=== PATIENT | male | born 1970 | race Caucasian/White ===

== ENCOUNTER → 2019-01-09 | Outpatient (CLI) | payer BC ==
--- NOTE | 2019-01-09 10:06 | US ---
EXAMINATION TYPE: US abdomen complete DATE OF EXAM: 01/09/2019 COMPARISON: NONE CLINICAL HISTORY: M54.5 low back Pain, and rt lower back pain R10.31. Patient states unable to digest meat. EXAM MEASUREMENTS: Liver Length: 12.9 cm Gallbladder Wall: 0.3 cm CBD: 0.5 cm Spleen: 11.6 cm Right Kidney: 10.7 x 5.9x 5.6 cm Left Kidney: 11.4 x 5.6 x 5.2 cm Technically difficult study due to midline bowel gas. Pancreas: visualized portions wnl Liver: wnl Gallbladder: No stones seen Evidence for sonographic Martin's sign: No CBD: wnl Spleen: wnl Right Kidney: No hydronephrosis or masses seen Left Kidney: No hydronephrosis or masses seen Upper IVC: wnl Abd Aorta: limited visualization proximally due to bowel gas. The visualized liver is heterogeneous. The intrahepatic portion of the IVC and visualized abdominal aorta are within normal limits. There is no evidence of cholelithiasis. Common bile duct is unremar kable. The visualized portions of the pancreas are homogenous. The spleen is unremarkable. Kidneys are symmetric and free of hydronephrosis. No renal lesions are seen. IMPRESSION: Suboptimal study. Probable diffuse fatty infiltration of liver. No acute findings are kallie dent.
== END | disposition home or self-care (01) ==
LOC: RADUSWWP 09:10
PROVIDERS: ATTEND Family Medicine
DX: R10.11 Right upper quadrant pain (principal); M54.5 Low back pain
CPT/HCPCS: 76700

== ENCOUNTER → 2019-12-17 | Outpatient (CLI) | payer BC ==
[2019-12-18 00:23] LABS: African American GFR (CKD) 82.4 (60.0-200.0); Anion Gap 9.8 mmol/L (4.00-12.00); BUN/Creat Ratio 14.17 Ratio (12.00-20.00); Carbon Dioxide 20.2 mmol/L (21.6-31.8); Non-African American GFR(CKD) 71.1 (60.0-200.0)
== END | disposition home or self-care (01) ==
LOC: LABWHC1 09:51
PROVIDERS: ATTEND Internal Medicine
DX: I10 Essential (primary) hypertension (principal); I71.9 Aortic aneurysm of unspecified site, without rupture; F17.200 Nicotine dependence, unspecified, uncomplicated
CPT/HCPCS: 36415; 80048

== ENCOUNTER → 2024-01-08 | Outpatient (CLI) | payer BC ==
--- NOTE | 2024-01-08 11:01 | US ---
EXAMINATION TYPE: US kidneys/renal and bladder DATE OF EXAM: 01/08/2024 COMPARISON: Abdominal ultrasound 01/09/19 CLINICAL INDICATION: Male, 53 years old with history of Z13.220 SCR FOR LIPO DISORDER E78.5; hyperlip idemia TECHNIQUE: Grayscale and color Doppler imaging of the bilateral kidneys and urinary bladder: FINDINGS: EXAM MEASUREMENTS: Right Kidney: 10.2 x 5.3 x 5.7 cm Left Kidney: 11.2 x 4.9 x 5.8 cm Right Kidney: No hydronephrosis or masses seen Left Kidney: No hydronephrosis or masses seen Bladder: wnl Bilateral Jets seen: yes There is no evidence for hydronephrosis at this point in time. Corticomedullary differentiation is m aintained. No nephrolithiasis is seen. No masses are identified. The urinary bladder is anechoic. IMPRESSION: No hydronephrosis or nephrolithiasis. [facility], , 01/08/2024 10:59 AM
== END | disposition home or self-care (01) ==
LOC: RADUSWWP 10:31
PROVIDERS: ATTEND Family Medicine
CPT/HCPCS: 76770

== ENCOUNTER 2024-02-03 12:36 | Inpatient (IN) | payer BC ==
--- NOTE | 2024-02-03 12:51 | ED ---
General Adult HPI - General Chief complaint: Chest Pain Stated complaint: Chest Pain Time Seen by Provider: 02/03/24 12:41 Source: patient, RN notes reviewed Mode of arrival: ambulatory Limitations: no limitations - History of Present Illness Initial comments: Patient is a 54-year-old male presenting to the emergency department with concerns for chest discomfort. Onset of symptoms was this morning. Symptoms have been present since that time. Discomfort is 7/10. Discomfort feels like pressure with some radiation to the left arm. No history of cardiac disease however patient does have history of aortic aneurysm. Discomfort is somewhat worse with standing up. No associated dyspnea, nausea, or diaphoresis. Patient did have somewhat similar symptoms over a year ago with unremarkable workup - Related Data Home Medications Medication Instructions Recorded Confirmed Acetaminophen Tab [Tylenol] 650 mg PO Q6H PRN 02/03/24 02/03/24 Rosuvastatin Calcium [Crestor] 5 mg PO HS 02/03/24 02/03/24 lisinopriL [Zestril] 10 mg PO DAILY@1200 02/03/24 02/03/24 Allergies Allergy/AdvReac Type Severity Reaction Status Date / Time No Known Allergies Allergy Verified 02/03/24 12:56 Review of Systems ROS Statement: Those systems with pertinent positive or pertinent negative responses have been documented in the HPI. ROS Other: All systems not noted in ROS Statement are negative. Constitutional: Denies: fever Eyes: Denies: eye pain ENT: Denies: ear pain Respiratory: Denies: dyspnea Cardiovascular: Reports: as per HPI, chest pain Endocrine: Denies: fatigue Gastrointestinal: Denies: abdominal pain Past Medical History Additional Past Medical History / Comment(s): migraine History of Any Multi-Drug Resistant Organisms: None Reported Past Surgical History: No Surgical Hx Reported Past Psychological History: No Psychological Hx Reported Smoking Status: Former smoker Past Alcohol Use History: Rare Past Drug Use History: Marijuana General Exam Limitations: no limitations General appearance: alert, in no apparent distress Head exam: Present: normocephalic Eye exam: Present: normal appearance Neck exam: Present: normal inspection Respiratory exam: Present: normal lung sounds bilaterally Cardiovascular Exam: Present: regular rate, normal rhythm, normal heart sounds Expanded Peripheral pulses: 2+: Radial (R), Radial (L), Dorsalis Pedis (R), Dorsalis Pedis (L) GI/Abdominal exam: Present: soft. Absent: tenderness Extremities exam: Present: normal inspection. Absent: pedal edema, calf tenderness Neurological exam: Present: alert Psychiatric exam: Present: normal affect, normal mood Skin exam: Present: normal color Course Vital Signs 02/03/24 02/03/24 02/03/24 12:37 12:51 12:56 Temperature 97.8 F Pulse Rate 64 66 65 Respiratory 16 16 16 Rate Blood Pressure 124/85 140/105 136/98 O2 Sat by Pulse 98 98 Oximetry 02/03/24 13:01 Temperature Pulse Rate 73 Respiratory 12 Rate Blood Pressure 111/97 O2 Sat by Pulse 97 Oximetry - Reevaluation(s) Reevaluation #1: 02/03/24 12:52 STEMI alert has been called. Cardiology has been paged and sound physician group has been paged. Patient has been updated EKG Findings - EKG Results: EKG: interpreted by ERMD (Q wave in 3. Inferior ST elevation. Borderline lateral ST elevation.), sinus rhythm, normal axis Medical Decision Making - Medical Decision Making EKG #2 interpreted by myself shows sinus rhythm with a rate of 67. Normal axis. Q wave in lead III. Inferior ST elevation with borderline lateral ST elevation Was pt. sent in by a medical professional or institution (, PA, IMPROVEMENT LEADER, urgent care, hospital, or assisted...) When possible be specific @ -No Did you speak to anyone other than the patient for history (EMS, parent, family, police, friend...)? What history was obtained from this source @ -No Did you review nursing and triage notes (agree or disagree)? Why? @ -I reviewed and agree with nursing and triage notes Were old charts reviewed (outside hosp., previous admission, EMS record, old EKG, old radiological studies, urgent care reports/EKG's, assisted records)? Report findings @ -Previous ultrasound reports reviewed without evidence of reported aortic changes Differential Diagnosis (chest pain, altered mental status, abdominal pain women, abdominal pain men, vaginal bleeding, weakness, fever, dyspnea, syncope, headache, dizziness, GI bleed, back pain, seizure, CVA, palpatations, mental health, musculoskeletal)? @ -Differential Chest Pain: Stable Angina, Unstable Angina, STEMI, NSTEMI Aortic Dissection, Pneumothorax, Musculoskeletal, Esophageal Spasm GERD, Cholecystitis, Pancreatitis, Zoster, this is not meant to be an all-inclusive list. EKG interpreted by me (3pts min.). @ -As above X-rays interpreted by me (1pt min.). @ -X-ray shows CT interpreted by me (1pt min.). @ -None done U/S interpreted by me (1pt. min.). @ -None done What testing was considered but not performed or refused? (CT, X-rays, U/S, labs)? Why? @ -None What meds were considered but not given or refused? Why? @ -None Did you discuss the management of the patient with other professionals (professionals i.e. DrHuong, PA, IMPROVEMENT LEADER, lab, RT, psych nurse, licensed social worker, core filer, teacher, chief environmental commitment officer, behavioral health case manager)? Give summary @ -Cardiology Dr. Sue and was updated and concerning for aneurysms being watched in the ascending aorta and abdominal. He is okay with patient receiving heparin and was taking patient to the [facility] at this time. Sound physician, Dr. Howard who will admit yanni parry Was smoking cessation discussed for >3mins.? @ -No Was critical care preformed (if so, how long)? @ -Care time: 18 minutes Were there social determinants of health that impacted care today? How? (Homelessness, low income, unemployed, alcoholism, drug addiction, transportation, low edu. Level, literacy, decrease access to med. care, fpc, rehab)? @ -No Was there de-escalation of care discussed even if they declined (Discuss DNR or withdrawal of care, Hospice)? DNR status @ -No What co-morbidities impacted this encounter? (DM, HTN, Smoking, COPD, CAD, Cancer, CVA, ARF, Chemo, Hep., AIDS, mental health diagnosis, sleep apnea, morbid obesity)? @ -Reported history of aortic aneurysm Was patient admitted / discharged? Hospital course, mention meds given and route, prescriptions, significant lab abnormalities, going to OR and other pertinent info. @ -Presents with chest discomfort, 7/10 with pressure and some radiation. EKG concerning for STEMI. STEMI alert called. Patient to go to [facility]. Admission orders written. Undiagnosed new problem with uncertain prognosis? @ -No Drug Therapy requiring intensive monitoring for toxicity (Heparin, Nitro, Insulin, Cardizem)? @ -No Were any procedures done? @ -No Diagnosis/symptom? @ -stemi Acute, or Chronic, or Acute on Chronic? @ -Acute Uncomplicated (without systemic symptoms) or Complicated (systemic symptoms)? @ -Complicated with questionable history of aortic aneurysm Side effects of treatment? @ -No Exacerbation, Progression, or Severe Exacerbation? @ -No Poses a threat to life or bodily function? How? (Chest pain, [place], [place], pneumonia, PE, COPD, DKA, ARF, appy, cholecystitis, CVA, Diverticulitis, Homicidal, Suicidal, threat to staff... and all critical care pts) @ -Threat to cardiac function and life Disposition Clinical Impression: ST elevation myocardial infarction (STEMI) Disposition: ADMITTED IP TO THIS HOSP Condition: Critical Is patient prescribed a controlled substance at d/c from ED?: No Referrals: Anita Parry III, MD [Primary Care Provider] - 1-2 days Time of Disposition: 13:08
[2024-02-03] MEDS: SODIUM CHLORIDE 0.9% 1,000 ML IV ONE (12:59)
[2024-02-03] MEDS: ASPIRIN 81 MG PO STA (13:00)
[2024-02-03] MEDS: NITROGLYCERIN SL TABS 0.4 MG TAB SUBLINGUAL STA ×3 (13:01→14:00)
[2024-02-03] MEDS: HEPARIN SODIUM 1,000 UN/ML (10ML VL) IVP STA ×2 (13:04)
[2024-02-03 13:10] LABS: Basophils # (A) 0.1 k/uL (0-0.2); Basophils % (A) 1 %; Eosinophils # (A) 0.6 k/uL (0-0.7); Eosinophils % (A) 7 %; HCT 48.2 % (39.0-53.0); HGB 15.5 gm/dL (13.0-17.5); Lymphocytes # (A) 1.6 k/uL (1.0-4.8); Lymphocytes % (A) 20 %; MCH 29.8 pg (25.0-35.0); MCHC 32.2 g/dL (31.0-37.0); MCV 92.6 fL (80.0-100.0); Mean Platelet Volume 7.3; Monocytes # (A) 0.6 k/uL (0-1.0); Monocytes % (A) 7 %; Neutrophils # (A) 5.1 k/uL (1.3-7.7); Neutrophils % (A) 64 %; Platelet Count 192 k/uL (150-450); RDW 13.2 % (11.5-15.5); WBC 7.9 k/uL (3.8-10.6)
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
[2024-02-03] MEDS: MIDAZOLAM 2 MG/2 ML VIAL IVP ONE (13:17)
[2024-02-03] MEDS: fentaNYL (PF) 50 MCG/ML 2 ML AMP IVP ONE (13:17)
[2024-02-03] MEDS: LIDOCAINE 1% INJ 10MG/ML (20 ML MDV) SQ ONE (13:18)
[2024-02-03] MEDS: VERAPAMIL SYRINGE (5 MG/10 ML) INTRAARTER ONE (13:19)
[2024-02-03 13:21] LABS: Partial Thromboplastin Time 25.6 sec (22.0-30.0); Prothrombin Time 10.8 sec (10.0-12.5)
--- NOTE | 2024-02-03 13:21 | XR ---
EXAMINATION TYPE: XR chest 1V portable DATE OF EXAM: 02/03/2024 CLINICAL HISTORY: Chest pain TECHNIQUE: Single frontal view of the chest is obtained. COMPARISON: None FINDINGS: There is no focal air space opacity, pleural effusion, or pneumothorax seen. The cardiac silhouette size is within normal limits. The osseous structures are intact. IMPRESSION: No acute process. [facility], , 02/03/2024 1:18 PM
[2024-02-03] MEDS: HEPARIN SODIUM 1,000 UN/ML (10ML VL) IVP ONE (13:26)
[2024-02-03 13:32] LABS: ALT 23 U/L (4-49); AST 22 U/L (17-59); African American GFR (CKD) 81 (>60 ml/min/1.73 sqM); Albumin 4.4 g/dL (3.5-5.0); Alkaline Phosphatase 45 U/L (38-126); Anion Gap 4 mmol/L; Blood Urea Nitrogen 14 mg/dL (9-20); Calcium 9.1 mg/dL (8.4-10.2); Carbon Dioxide 28 mmol/L (22-30); Chloride 108 mmol/L (98-107); Glucose 99 mg/dL (74-99); Magnesium 2.3 mg/dL (1.6-2.3); Non-African American GFR(CKD) 70 (>60 ml/min/1.73 sqM); Potassium 4.6 mmol/L (3.5-5.1); Sodium 140 mmol/L (137-145); Total Bilirubin 0.7 mg/dL (0.2-1.3); Total Protein 7.2 g/dL (6.3-8.2)
[2024-02-03] MEDS: CLOPIDOGREL 75 MG TAB PO ONE (13:39)
[2024-02-03] MEDS: IOPAMIDOL-300 100ML BTL INJ ONE (13:40)
[2024-02-03] MEDS ORDERED: RX INFO: IV CONTRAST WAS GIVEN 1 EACH MISC MISCELLANE PRN (13:42)
[2024-02-03] MEDS ORDERED: ZOLPIDEM 5 MG TAB PO PRN (13:42)
[2024-02-03] MEDS ORDERED: ATROPINE SULFATE 0.1 MG/ML 10ML SYRINGE IV PRN (13:42)
[2024-02-03] MEDS ORDERED: MAG HYDROX/AL HYDROX/SIMETH 30 ML CUP PO PRN (13:42)
[2024-02-03] MEDS: HEPARIN SOD,PORK IN 0.45% NACL 25,000 UNIT in 0.45% NACL 1 250ML.BAG IV SCH (14:12)
[2024-02-03] MEDS: SODIUM CHLORIDE 0.9% 1,000 ML in EMPTY BAG 1 BAG IV SCH (14:12)
[2024-02-03 14:24] LABS: Glucose,Whole Blood 90 mg/dL (70-110)
[2024-02-03 14:40] LABS: Basophils # (A) 0.1 k/uL (0-0.2); Basophils % (A) 1 %; Eosinophils # (A) 0.5 k/uL (0-0.7); Eosinophils % (A) 7 %; HCT 45.6 % (39.0-53.0); HGB 14.6 gm/dL (13.0-17.5); Lymphocytes # (A) 1.4 k/uL (1.0-4.8); Lymphocytes % (A) 20 %; MCH 29.9 pg (25.0-35.0); MCV 93.5 fL (80.0-100.0); Mean Platelet Volume 7.5; Monocytes # (A) 0.4 k/uL (0-1.0); Monocytes % (A) 6 %; Neutrophils # (A) 4.7 k/uL (1.3-7.7); Neutrophils % (A) 65 %; Platelet Count 168 k/uL (150-450); RBC 4.88 m/uL (4.30-5.90); RDW 13.2 % (11.5-15.5); WBC 7.3 k/uL (3.8-10.6)
--- NOTE | 2024-02-03 14:56 | P.CARDCATH ---
Description of Procedure: PROCEDURES PERFORMED: Left heart catheterization, bilateral coronary angiography, ultrasound guided arterial access INDICATION: STEMI CONSENT:I have discussed the risks, benefits and alternative therapies for the above-mentioned procedure and for both sedation/analgesia as well as necessary blood product administration, if indicated, as they pertain to this patient. The patient has indicated understanding and acceptance of the risks and procedures discussed. PROCEDURE: After the risks, benefits and alternatives of the above mentioned procedure explained in detail with the patient, informed consent was obtained. Patient was taken to the catheterization lab and prepped and draped in usual fashion. Ultrasound guidance was used to assess for arterial access. 1% lidocaine was used to anesthetize the right radial artery. A 6-Sol[place] Islander sheath was placed in the right radial artery using modified Seldinger technique and ultrasound guidance. Left coronary angiography was performed with a 5-[place] Islander JL 4.0 catheter and right coronary angiography was performed with a 6-[place] Islander AL1 catheter in various views. A 5-[place] Islander FR5 catheter was inserted into the left ventricle and pressure measurements were obtained. The right radial sheath was removed and a TR band was placed with hemostasis achieved. The patient tolerated the procedure well. Patient was transported back to the post catheterization holding area in stable condition. Conscious Sedation: Patient was monitored under the direct supervision of myself for conscious sedation using Versed and fentanyl for a total duration of 17 minutes HEMODYNAMICS: Ao: 115/71 LV: 108/8, LVEDP 18 SELECTIVE CORONARY ARTERIOGRAPHY: LEFT MAIN: The left main is a large caliber vessel which bifurcates into the LAD and circumflex. There is no significant stenosis. LEFT ANTERIOR DESCENDING CORONARY ARTERY: LAD is a large caliber vessel which wraps around to the apex. There is mild 20-30% stenosis. LEFT CIRCUMFLEX CORONARY ARTERY: Left circumflex is a moderate caliber vessel which is somnolent. It gives rise to the PDA. The mid to distal circumflex is aneurysmal approximately 6 mm in diameter with 90% stenosis irregular flow likely consistent with dissection RIGHT CORONARY ARTERY: The right coronary artery is a moderate to large caliber vessel which gives off a small PLV branch and is nondominant vessel. There is a mid RCA aneurysmal portion with 20-30% stenosis. FINAL IMPRESSION: 1. 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 Mildly elevated left sided filling pressures PLAN: 1. Aggressive risk factor modification per most recent ACC/AHA guidelines. 2. Patient's EKG has normalized and patient is chest pain-free. 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 If he has recurrent angina may consider re-cathing, or intravascular ultrasound or stenting of the circumflex.
[2024-02-03 15:24] LABS: INR 1.1 (<1.2); Prothrombin Time 11.7 sec (10.0-12.5)
[2024-02-03 15:54] LABS: Partial Thromboplastin Time 151.9 sec (22.0-30.0)
--- NOTE | 2024-02-03 16:34 | CA ---
Transthoracic Echo Report Name: Andrés Jensen Age: 54 Gender: M : 1970 Exam Date: 02/03/2024 15:10 Exam Location: [facility] Ht (in): 72 Wt (lb): 212 Ordering Physician: Amanda Alcocer Attending/Referring Phys: [id number], Carlyn Chuck Wagon Driver Flakita Narvaez RDCS Procedure CPT: Indications: LVF Cardiac Hx: Technical Quality: Good Contrast 1: Total Dose (mL): Contrast 2: Total Dose (mL): MEASUREMENTS (Male / Female) Normal Values 2D ECHO LV Diastolic Diameter PLAX 5.2 cm 4.2 - 5.9 / 3.9 - 5.3 cm LV Systolic Diameter PLAX 3.6 cm IVS Diastolic Thickness 0.9 cm 0.6 - 1.0 / 0.6 - 0.9 cm LVPW Diastolic Thickness 1.1 cm 0.6 - 1.0 / 0.6 - 0.9 cm LV Relative Wall Thickness 0.4 LVOT Diameter 2.6 cm LV Diastolic Volume MOD BP 155.8 cm??? 67 - 155 / 56 - 104 cm??? LV Systolic Volume MOD BP 75.6 cm??? 22 - 58 / 19 - 49 cm??? LV Ejection Fraction MOD BP 51.5 % >= 55 % LV Cardiac Index MOD BP 2194.4 cm???/min???m??? LV Diastolic Volume MOD 4C 150.8 cm??? LV Systolic Volume MOD 4C 75.5 cm??? LV Ejection Fraction MOD 4C 49.9 % LV Cardiac Index MOD 4C 2060.4 cm???/min???m??? LV Diastolic Length 4C 8.8 cm LV Systolic Length 4C 8.1 cm LV Diastolic Volume MOD 2C 153.9 cm??? LV Systolic Volume MOD 2C 69.1 cm??? LV Ejection Fraction MOD 2C 55.1 % LV Cardiac Index MOD 2C 2319.8 cm???/min???m??? LV Diastolic Length 2C 9.2 cm LV Systolic Length 2C 7.4 cm LA Volume 84.6 cm??? 18 - 58 / 22 - 52 cm??? LA Volume Index 38.0 cm???/m??? 16 - 28 cm???/m??? Ascending Aorta Diameter 4.1 cm DOPPLER AV Peak Velocity 100.1 cm/s AV Peak Gradient 4.0 mmHg AV Mean Velocity 69.6 cm/s AV Mean Gradient 2.2 mmHg AV Velocity Time Integral 22.4 cm LVOT Peak Velocity 78.4 cm/s LVOT Peak Gradient 2.5 mmHg LVOT Velocity Time Integral 17.4 cm LVOT Stroke Volume 89.9 cm??? LVOT Stroke Volume Index 41.2 ml/m??? LVOT Cardiac Index 2459.3 cm???/min???m??? AV Area Cont Eq vti 4.0 cm??? AV Area Cont Eq pk 4.0 cm??? MV Area PHT 4.5 cm??? Mitral E Point Velocity 59.4 cm/s Mitral A Point Velocity 35.7 cm/s Mitral E to A Ratio 1.7 MV Deceleration Time 169.4 ms TR Peak Velocity 210.9 cm/s TR Peak Gradient 17.8 mmHg Right Atrial Pressure 10.0 mmHg Pulmonary Artery Systolic Pressu 27.8 mmHg Right Ventricular Systolic Press 27.8 mmHg PV Peak Velocity 67.5 cm/s PV Peak Gradient 1.8 mmHg FINDINGS Left Ventricle Left ventricular ejection fraction is estimated at 50-55 %. Moderately increased left ventricular systolic volume. Mildly decreased left ventricular ejection fraction. Mid to basal inferior wall hypokinesia Right Ventricle Mild right ventricular dilatation with mildly reduced function. Right ventricular systolic pressure within normal limits. Right Atrium Mild right atrial dilatation. Left Atrium Mildly increased left atrial area. Mitral Valve Structurally normal mitral valve. No evidence for mitral valve prolapse. No mitral stenosis. Trace mitral regurgitation. Aortic Valve Trileaflet aortic valve. No aortic valve stenosis or regurgitation. Tricuspid Valve Structurally normal tricuspid valve. No tricuspid stenosis. Mild tricuspid regurgitation. Pulmonic Valve Pulmonic valve not well visualized. No pulmonic stenosis. Trace pulmonic regurgitation. Pericardium No pericardial effusion. Aorta Dilated aortic annulus measured at 4.8 cm. Mildly dilated ascending aorta. History of abdominal aortic aneurysm. CONCLUSIONS LVEF 50 to 55% Mid to basal inferior wall hypokinesia Mildly dilated RV with mildly reduced systolic function. Mild biatrial dilatation No significant valve dysfunction other than mild TR Dilated aortic root measured at 4.8 cm. Previewed by: Dr Gian Serrano (Electronically Signed) Final Date: 03 February 2024 16:33
--- NOTE | 2024-02-03 16:46 | P.HPIM ---
History of Present Illness H&P Date: 02/03/24 Patient is a 54-year-old male with hypertension, hyperlipidemia, abdominal aortic aneurysm, and ascending aortic aneurysm who came in for chest pressure. He reported that this morning when he woke up he experienced a chest pressure that with an intensity of 8 out of 10 that was constant and was radiating to both of his arms and he did not experience relief with rest. He reported that he was experiencing intermittent chest pressures of the same intensity throughout the years and he believes this is due to his aneurysms. Today the chest pressure did not go away which led him to seek care. He denied shortness of breath, calf tenderness, nausea, sweats, vomiting, lightheadedness, palpitations, changes in vision, facial asymmetry, weakness, tremors, or recent travel. In the ER, EKG showed sinus rhythm with a rate of [address] elevations and Q waves in lead III. Troponin less than 0.0 12. WBC 7.9 hemoglobin 15.5 platelet count 192 potassium 140 potassium 4.6 BUN 14 creatinine 1.18 calcium 9.1 magnesium 2.3. ER CXR: No acute process. The rest of the review of systems is negative. PHYSICAL EXAMINATION: GENERAL: The patient is alert and oriented x3, not in any acute distress. Well developed, well nourished. HEENT: Pupils are round and equally reacting to light. EOMI. No scleral icterus. No conjunctival pallor. Normocephalic, atraumatic. No pharyngeal erythema. No t hyromegaly. CARDIOVASCULAR: S1 and S2 present. No murmurs, rubs, or gallops. PULMONARY: Chest is clear to auscultation b/l, no wheezing or crackles. ABDOMEN: Soft, nontender, nondistended, normoactive bowel sounds. No palpable organomegaly MUSCULOSKELETAL: No joint swelling or deformity. EXTREMITIES: No cyanosis, clubbing, or pedal edema. NEUROLOGICAL: Gross neurological examination did not reveal any focal deficits. SKIN: No rashes. Assessment: 53-year-old male who came in for chest pressure. EKG showed ST elevations in inferior wall. 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 every 6 as needed for pain Continue Plavix 75 mg p.o. daily Continue Lipitor 40 mg p.o. daily Continue aspirin 81 p.o. daily Metoprolol tartrate 12.5 mg p.o. twice daily, decreased from home dose, hold for HR < 60 CBC, BMP, Mg in the morning Trend troponin to peak every 6 hours Consult pulmonary for intensive care management Cardiology following Chronic conditions #. Hypertension Continue lisinopril 10 mg p.o. daily #. Hyperlipidemia Continue rosuvastatin 5 mg daily F: Oral fluid intake E: None N: Heart healthy diet A: self ambulation DVT ppx: IV heparin GI ppx: Protonix 40 mg p.o. daily Dispo: Estimated length of stay greater than 2 midnights for evaluation of ST segment elevation [place] of the inferior wall. Ekaterina Burroughs MD PGY-1 IM Dictation was produced using [employer] dictation software. please excuse any grammatical, word or spelling errors. I saw and evaluated the patient during the downey and critical portions of this encounter, and discussed the case in detail with the resident author of this note, I agree with the Assessment and Plan, and my changes, if any, are highlighted in blue. Past Medical History Additional Past Medical History / Comment(s): migraine History of Any Multi-Drug Resistant Organisms: None Reported Past Surgical History: No Surgical Hx Reported Past Psychological History: No Psychological Hx Reported Smoking Status: Former smoker Past Alcohol Use History: Rare Past Drug Use History: Marijuana - Past Family History Father Additional Family Medical History / Comment(s): enlarged aorta, possibly an aortic aneurysm, is . Brother(s) Additional Family Medical History / Comment(s): marfan's syndrome Mother Family Medical History: Diabetes Mellitus Additional Family Medical History / Comment(s): from brain aneurysm. Medications and Allergies Home Medications Medication Instructions Recorded Confirmed Type Acetaminophen Tab [Tylenol] 650 mg PO Q6H PRN 02/03/24 02/03/24 History Rosuvastatin Calcium [Crestor] 5 mg PO HS 02/03/24 02/03/24 History lisinopriL [Zestril] 10 mg PO DAILY@1200 02/03/24 02/03/24 History Allergies Allergy/AdvReac Type Severity Reaction Status Date / Time No Known Allergies Allergy Verified 02/03/24 12:56 Physical Exam Osteopathic Statement: *. No significant issues noted on an osteopathic structural exam other than those noted in the History and Physical/Consult. Vitals: Vital Signs Temp Pulse Pulse Resp BP Pulse Ox 02/03/24 14:15 98.1 F 60 17 95/73 99 02/03/24 14:06 62 18 02/03/24 13:22 74 16 117/82 98 02/03/24 13:01 73 12 111/97 97 02/03/24 13:00 74 02/03/24 12:56 65 16 136/98 02/03/24 12:51 66 16 140/105 98 02/03/24 12:37 97.8 F 64 16 124/85 98 Intake and Output 02/03/24 02/03/24 02/03/24 06:59 14:59 22:59 Intake Total 700 18.286 Balance 700 18.286 Intake: IV 700 Sodium Chloride 0.9% 1, 100 000 ml In Empty Bag 1 bag @ 100 mls/hr IV .Q10H [facility] Rx#:[id number] Intake, IV Titration 18.286 Amount Heparin Sod,Pork in 0.45% 18.286 NaCl 25,000 unit In 0.45 % NaCl 1 250ml.bag @ 10. 399 UNITS/KG/HR 10 mls/hr IV .Q24H [facility] Rx#: [id number] Other: Weight 96.162 kg Results CBC & Chem 7: 02/03/24 14:12 02/03/24 12:59 Labs: Abnormal Lab Results - Last 24 Hours (Table) 02/03/24 02/03/24 Range/Units 12:59 14:12 APTT 151.9 H* (22.0-30.0) sec Chloride 108 H (98-107) mmol/L
[2024-02-03] MEDS: ACETAMINOPHEN TAB 325 MG TAB PO PRN (20:05)
[2024-02-03] MEDS: ATORVASTATIN 40 MG TAB PO SCH (20:05)
[2024-02-03] MEDS: METOPROLOL TARTRATE 12.5 MG TAB PO SCH (20:06)
[2024-02-03] MEDS ORDERED: ATORVASTATIN 10 MG TAB PO SCH (21:00)
[2024-02-04] MEDS: HEPARIN SODIUM 1,000 UN/ML (10ML VL) IV PRN (00:42)
[2024-02-04 02:51] LABS: Basophils # (A) 0.1 k/uL (0-0.2); Basophils % (A) 1 %; Eosinophils # (A) 0.5 k/uL (0-0.7); Eosinophils % (A) 6 %; HCT 42.8 % (39.0-53.0); Lymphocytes # (A) 1.9 k/uL (1.0-4.8); Lymphocytes % (A) 23 %; MCH 30.2 pg (25.0-35.0); MCHC 32.6 g/dL (31.0-37.0); MCV 92.7 fL (80.0-100.0); Mean Platelet Volume 8.2; Monocytes # (A) 0.5 k/uL (0-1.0); Monocytes % (A) 6 %; Neutrophils # (A) 5.1 k/uL (1.3-7.7); Neutrophils % (A) 62 %; Platelet Count 171 k/uL (150-450); RBC 4.62 m/uL (4.30-5.90); RDW 13.3 % (11.5-15.5); WBC 8.2 k/uL (3.8-10.6)
[2024-02-04 03:24] LABS: Prothrombin Time 11.3 sec (10.0-12.5)
[2024-02-04 03:28] LABS: Magnesium 2.2 mg/dL (1.6-2.3)
[2024-02-04 08:02] LABS: African American GFR (CKD) >90 (>60 ml/min/1.73 sqM); Anion Gap 3 mmol/L; Blood Urea Nitrogen 9 mg/dL (9-20); Calcium 8.1 mg/dL (8.4-10.2); Carbon Dioxide 27 mmol/L (22-30); Chloride 108 mmol/L (98-107); Glucose 81 mg/dL (74-99); Non-African American GFR(CKD) 86 (>60 ml/min/1.73 sqM); Potassium 4.2 mmol/L (3.5-5.1); Sodium 138 mmol/L (137-145)
[2024-02-04] MEDS: ASPIRIN 81 MG PO SCH (08:07)
[2024-02-04] MEDS: CLOPIDOGREL 75 MG TAB PO SCH (08:07)
[2024-02-04 08:34] LABS: Basophils # (A) 0.1 k/uL (0-0.2); Basophils % (A) 1 %; Eosinophils # (A) 0.5 k/uL (0-0.7); Eosinophils % (A) 6 %; HCT 45.1 % (39.0-53.0); HGB 14.8 gm/dL (13.0-17.5); Lymphocytes # (A) 1.9 k/uL (1.0-4.8); Lymphocytes % (A) 26 %; MCH 30.3 pg (25.0-35.0); MCHC 32.9 g/dL (31.0-37.0); MCV 92.1 fL (80.0-100.0); Mean Platelet Volume 7.6; Monocytes # (A) 0.4 k/uL (0-1.0); Monocytes % (A) 6 %; Neutrophils # (A) 4.3 k/uL (1.3-7.7); Neutrophils % (A) 60 %; Platelet Count 164 k/uL (150-450); RDW 13.1 % (11.5-15.5); WBC 7.2 k/uL (3.8-10.6)
[2024-02-04 08:56] LABS: Chol/HDL Ratio 5.04 Ratio; LDL Cholesterol,Calculated 143.9 mg/dL (0.0-131.0)
[2024-02-04] MEDS ORDERED: ASPIRIN 325 MG TAB PO SCH (09:00)
[2024-02-04 09:32] VITALS: BMI 29.0
--- NOTE | 2024-02-04 11:51 | P.CNPUL ---
History of Present Illness Consult date: 02/04/24 History of present illness: Andrés Jensen is a 54-year-old male patient with of hypertension, HLD, and aneurysm possibly ascending and/or abdominal aneurysm. He presented in ER yesterday and treated for STEMI. Patient was found to have ST elevation in the lateral leads. Patient was taken to the [facility] and is now s/p cardiac catheterization with findings of left circumflex coronary artery aneurysmal approximately 6 mm in diameter, and with 90% stenosis present with irregular flow consistent with dissection. No stent placed due to dissection. He is on room air, and saturating well. He is currently on IV heparin 10.399 units/kg/h. WBC 7.2, hemoglobin 14.8, sodium 138, potassium 4.2, bicarb 27, creatinine 1.00 are all WNL. Yesterdays chest x-ray with no abnormal cardiopulmonary process. He is overall doing well, denying chest pain, palpitations, shortness of breath, diaphoresis with no other complaints and is being monitored in the ICU. Review of Systems Constitutional: Reports as per HPI Past Medical History Past Medical History: Coronary Artery Disease (CAD), Chest Pain / Angina, Hypertension, Pneumonia, Skin Disorder Additional Past Medical History / Comment(s): migraine History of Any Multi-Drug Resistant Organisms: None Reported Past Surgical History: No Surgical Hx Reported Past Psychological History: No Psychological Hx Reported Smoking Status: Former smoker Past Alcohol Use History: Rare Past Drug Use History: Marijuana - Past Family History Father Additional Family Medical History / Comment(s): enlarged aorta, possibly an aortic aneurysm, is . Brother(s) Additional Family Medical History / Comment(s): marfan's syndrome Mother Family Medical History: Diabetes Mellitus Additional Family Medical History / Comment(s): from brain aneurysm. Medications and Allergies Home Medications Medication Instructions Recorded Confirmed Type Acetaminophen Tab [Tylenol] 650 mg PO Q6H PRN 02/03/24 02/03/24 History Rosuvastatin Calcium [Crestor] 5 mg PO HS 02/03/24 02/03/24 History lisinopriL [Zestril] 10 mg PO DAILY@1200 02/03/24 02/03/24 History Allergies Allergy/AdvReac Type Severity Reaction Status Date / Time No Known Allergies Allergy Verified 02/03/24 12:56 Physical Exam Vitals: Vital Signs Temp Pulse Pulse Resp BP Pulse Ox 02/04/24 08:00 98.2 F 76 18 109/74 94 L 02/04/24 07:30 72 15 116/100 95 02/04/24 07:00 79 21 102/76 95 02/04/24 06:30 64 14 100/72 95 02/04/24 06:00 62 12 100/71 95 02/04/24 05:30 58 L 12 95/69 95 02/04/24 05:00 64 14 94/70 96 02/04/24 04:30 61 12 92/70 96 02/04/24 04:00 97.7 F 62 16 104/79 96 02/04/24 03:30 67 13 111/82 96 02/04/24 03:00 62 15 117/87 96 02/04/24 02:30 68 18 114/87 95 02/04/24 02:00 66 18 113/84 95 02/04/24 01:30 66 20 97/68 96 02/04/24 01:00 64 13 101/62 96 02/04/24 00:30 79 17 112/70 96 02/04/24 00:00 98.4 F 64 15 108/83 95 02/03/24 23:30 65 15 102/72 96 02/03/24 23:00 64 13 107/77 95 02/03/24 22:30 62 12 109/85 96 02/03/24 22:00 61 15 102/71 97 02/03/24 21:30 63 18 106/79 95 02/03/24 21:00 78 24 116/91 96 02/03/24 20:30 68 15 119/85 96 02/03/24 20:00 98.1 F 67 15 122/87 97 02/03/24 19:30 70 17 115/81 95 02/03/24 19:00 71 17 132/32 97 02/03/24 18:30 73 25 H 117/85 97 02/03/24 18:00 77 17 123/88 97 02/03/24 17:30 83 17 113/95 98 02/03/24 17:00 71 16 125/97 98 02/03/24 16:30 65 32 H 128/89 99 02/03/24 16:00 98 F 58 L 19 128/97 99 02/03/24 15:30 62 13 116/87 99 02/03/24 15:00 60 22 113/80 98 02/03/24 14:30 63 13 95/73 100 02/03/24 14:15 98.1 F 60 17 95/73 99 02/03/24 14:06 62 18 02/03/24 13:22 74 16 117/82 98 02/03/24 13:01 73 12 111/97 97 02/03/24 13:00 74 02/03/24 12:56 65 16 136/98 02/03/24 12:51 66 16 140/105 98 02/03/24 12:37 97.8 F 64 16 124/85 98 Intake and Output 02/03/24 02/04/24 02/04/24 22:59 06:59 14:59 Intake Total 818.286 773.917 40 Output Total 1000 500 800 Balance -181.714 273.917 -760 Intake: IV 800 720 40 Sodium Chloride 0.9% 1, 800 720 40 000 ml In Empty Bag 1 bag @ 100 mls/hr IV .Q10H [facility] Rx#:[id number] Intake, IV Titration 18.286 53.917 Amount Heparin Sod,Pork in 0.45% 18.286 53.917 NaCl 25,000 unit In 0.45 % NaCl 1 250ml.bag @ 10. 399 UNITS/KG/HR 10 mls/hr IV .Q24H [facility] Rx#: [id number] Output: Urine 1000 500 800 Other: Voiding Method Toilet Toilet Toilet Weight 97 kg 97 kg GENERAL: Not in any acute distress. Well developed, well nourished. Room Air. HEENT: Pupils are round and equally reacting to light. EOMI. No scleral icterus. No conjunctival pallor. Normocephalic, atraumatic. CARDIOVASCULAR: S1 and S2 present. No murmurs, rubs, or gallops. PULMONARY: Chest is clear to auscultation, no wheezing or crackles. ABDOMEN: Soft, nontender, nondistended, normoactive bowel sounds. No palpable organomegaly. MUSCULOSKELETAL: No joint swelling or deformity. EXTREMITIES: No cyanosis, clubbing, or pedal edema. NEUROLOGICAL: Gross neurological examination did not reveal any focal deficits. PSYCH: The patient is alert and oriented x3 SKIN: No rashes. no petechiae. Results - Laboratory Findings CBC and BMP: 02/04/24 07:48 02/04/24 06:15 PT/INR, D-dimer PT 11.3 sec (10.0-12.5) 02/04/24 02:35 INR 1.0 (<1.2) 02/04/24 02:35 Abnormal lab findings: Abnormal Labs 02/03/24 02/03/24 02/03/24 12:59 14:12 15:57 APTT 151.9 H* Chloride 108 H Calcium Troponin I 1.420 H* Cholesterol LDL Cholesterol, Calc 02/03/24 02/03/24 02/03/24 19:13 23:22 23:22 APTT 36.3 H Chloride Calcium Troponin I 5.090 H* 3.710 H* Cholesterol LDL Cholesterol, Calc 02/04/24 02/04/24 02/04/24 02:35 02:35 06:15 APTT Chloride 108 H Calcium 8.1 L Troponin I 2.400 H* Cholesterol 208.00 H LDL Cholesterol, Calc 143.9 H 02/04/24 02/04/24 06:16 07:43 APTT 49.6 H Chloride Calcium Troponin I 1.470 H* Cholesterol LDL Cholesterol, Calc Assessment and Plan Assessment: STEMI with 90% LCA stenosis, secondary to SCAD status post catheterization Hypertension Hyperlipidemia Plan: Cardiac monitoring Continue IV heparin Nitroglycerin sublingual tab as needed for chest pain Continue Plavix 75 mg p.o. daily, Lipitor 40 mg p.o. daily and aspirin 81 p.o. daily Metoprolol tartrate 12.5 mg p.o. twice daily Continue lisinopril 10 mg p.o. daily Cardiology following Continue DVT and GI prophylaxis Continue heart healthy diet Hemodynamically stable, can be downgraded with telemetry today or tomorrow We will continue to follow make recommendations along the way.
[2024-02-04] MEDS: lisinopriL 10 MG TAB PO SCH (12:02)
--- NOTE | 2024-02-04 13:35 | P.PN ---
Subjective Progress Note Date: 02/04/24 Patient is a 54-year-old male with hypertension, hyperlipidemia, abdominal aortic aneurysm, and ascending aortic aneurysm who came in for chest pressure. He reported that this morning when he woke up he experienced a chest pressure that with an intensity of 8 out of 10 that was constant and was radiating to both of his arms and he did not experience relief with rest. He reported that he was experiencing intermittent chest pressures of the same intensity throughout the years and he believes this is due to his aneurysms. Today the chest pressure did not go away which led him to seek care. He denied shortness of breath, calf tenderness, nausea, sweats, vomiting, lightheadedness, palpitations, changes in vision, facial asymmetry, weakness, tremors, or recent travel. In the ER, EKG showed sinus rhythm with a rate of [address] elevations and Q waves in lead III. Troponin less than 0.0 12. WBC 7.9 hemoglobin 15.5 platelet count 192 potassium 140 potassium 4.6 BUN 14 creatinine 1.18 calcium 9.1 magnesium 2.3. ER CXR: No acute process. 02/04/2024 patient seen and examined at bedside. Patient is still in ICU. He did not experience any new symptoms or has any new complaints overnight. Vital signs were stable overnight. WBC 7.2 hemoglobin 14.8 platelet count 164,000 PTT 49.6 sodium 138 potassium 4.2 BUN 9 creatinine 1 glucose 81 troponin peaked at 1 18 11 p.m. at 3.7 triglycerides 114 cholesterol 208 LDL 143 VLDL 22 HDL 41 echocardiogram showed left ventricular ejection fraction 50 to 55% with mild basal inferior wall hypokinesia and mild biatrial dilatation. The rest of the review of systems is negative. GENERAL: The patient is alert and oriented x3, not in any acute distress. Well developed, well nourished. HEENT: Pupils are round and equally reacting to light. EOMI. No scleral icterus. No conjunctival pallor. Normocephalic, atraumatic. No pharyngeal erythema. No thyromegaly. CARDIOVASCULAR: S1 and S2 present. No murmurs, rubs, or gallops. PULMONARY: Bilateral wheezing heard in the middle and lower lobes, no wheezing or crackles. ABDOMEN: Soft, nontender, nondistended, normoactive bowel sounds. No palpable organomegaly MUSCULOSKELETAL: No joint swelling or deformity. EXTREMITIES: No cyanosis, clubbing, or pedal edema. NEUROLOGICAL: Gross neurological examination did not reveal any focal deficits. SKIN: No rashes. Assessment: 53-year-old male who came in for chest pressure. EKG showed ST elevations in inferior wall. 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 Cardiac monitoring Continue IV heparin Nitroglycerin sublingual tab as needed for chest pain Tylenol 650 mg p.o. every 6 as needed for pain Continue Plavix 75 mg p.o. daily Continue Lipitor 40 mg p.o. daily Continue aspirin 81 p.o. daily Metoprolol tartrate 12.5 mg p.o. twice daily, hold for HR < 60 CBC, BMP, Mg in the morning Consult pulmonary for intensive care management Cardiology following Chronic conditions #. Hypertension Continue lisinopril 10 mg p.o. daily #. Hyperlipidemia Continue rosuvastatin 5 mg daily F: Oral fluid intake E: None N: Heart healthy diet A: self ambulation DVT ppx: IV heparin GI ppx: Protonix 40 mg p.o. daily Dispo: Estimated length of stay greater than 2 midnights for evaluation of ST segment elevation [place] of the inferior wall. Ekaterina Burroughs MD PGY-1 IM Dictation was produced using [employer] dictation software. please excuse any grammatical, word or spelling errors. I saw and evaluated the patient during the downey and critical portions of this encounter, and discussed the case in detail with the resident author of this note, I agree with the Assessment and Plan, and my changes, if any, are highlighted in blue. Objective - Vital Signs Vital signs: Vital Signs Temp 97.7 F 02/04/24 04:00 Pulse 79 02/04/24 07:00 Resp 21 02/04/24 07:00 BP 102/76 02/04/24 07:00 Pulse Ox 95 02/04/24 07:00 FiO2 Intake & Output 02/03/24 02/04/24 02/04/24 18:59 06:59 18:59 Intake Total 2096.353 1752.917 20 Output Total 700 800 Balance 418.286 373.917 20 Weight 96.162 kg 97 kg Intake: IV 1100 1120 20 Sodium Chloride 0.9% 1, 500 1120 20 000 ml In Empty Bag 1 bag @ 100 mls/hr IV .Q10H [facility] Rx#:[id number] Intake, IV Titration 18.286 53.917 Amount Heparin Sod,Pork in 0.45% 18.286 53.917 NaCl 25,000 unit In 0.45 % NaCl 1 250ml.bag @ 10. 399 UNITS/KG/HR 10 mls/hr IV .Q24H [facility] Rx#: [id number] Output: Urine 700 800 Other: Voiding Method Toilet Toilet - Labs CBC & Chem 7: 02/04/24 07:48 02/04/24 06:15 Labs: Abnormal Lab Results - Last 24 Hours (Table) 02/03/24 02/03/24 02/03/24 Range/Units 12:59 14:12 15:57 APTT 151.9 H* (22.0-30.0) sec Chloride 108 H (98-107) mmol/L Troponin I 1.420 H* (0.000-0.034) ng/mL 02/03/24 02/03/24 02/03/24 Range/Units 19:13 23:22 23:22 APTT 36.3 H (22.0-30.0) sec Chloride (98-107) mmol/L Troponin I 5.090 H* 3.710 H* (0.000-0.034) ng/mL 02/04/24 02/04/24 Range/Units 02:35 06:16 APTT 49.6 H (22.0-30.0) sec Chloride (98-107) mmol/L Troponin I 2.400 H* (0.000-0.034) ng/mL
[2024-02-04] MEDS: NITROGLYCERIN SL TABS 0.4 MG TAB SUBLINGUAL PRN (15:05)
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
[2024-02-05 05:34] LABS: HCT 42.5 % (39.0-53.0); HGB 14.3 gm/dL (13.0-17.5); MCH 30.7 pg (25.0-35.0); MCHC 33.7 g/dL (31.0-37.0); Mean Platelet Volume 8.2; Platelet Count 175 k/uL (150-450); RBC 4.67 m/uL (4.30-5.90); RDW 13.7 % (11.5-15.5); WBC 6.4 k/uL (3.8-10.6)
[2024-02-05 05:51] LABS: African American GFR (CKD) >90 (>60 ml/min/1.73 sqM); Anion Gap 2 mmol/L; Blood Urea Nitrogen 10 mg/dL (9-20); Calcium 8.7 mg/dL (8.4-10.2); Carbon Dioxide 24 mmol/L (22-30); Chloride 110 mmol/L (98-107); Glucose 83 mg/dL (74-99); Magnesium 2.2 mg/dL (1.6-2.3); Non-African American GFR(CKD) 85 (>60 ml/min/1.73 sqM); Sodium 136 mmol/L (137-145)
--- NOTE | 2024-02-05 10:06 | P.PN ---
Subjective Progress Note Date: 02/05/24 Andrés Jensen is a 54-year-old male patient with of hypertension, HLD, and aneurysm possibly ascending and/or abdominal aneurysm. He presented in ER yesterday and treated for STEMI. Patient was found to have ST elevation in the lateral leads. Patient was taken to the Controls Technician and is now s/p cardiac cat heterization with findings of left circumflex coronary artery aneurysmal approximately 6 mm in diameter, and with 90% stenosis present with irregular flow consistent with dissection. No stent placed due to dissection. He is on room air, and saturating well. He is currently on IV heparin 10.399 units/kg/h. WBC 7.2, hemoglobin 14.8, sodium 138, potassium 4.2, bicarb 27, creatinine 1.00 are all WNL. Yesterdays chest x-ray with no abnormal cardiopulmonary process. He is overall doing well, denying chest pain, palpitations, shortness of breath, diaphoresis with no other complaints and is being monitored in the ICU. Patient seen and examined on 02/05/2024. Currently, the patient is on room air. He is receiving IV heparin. He is getting saline at 20 cc an hour. He is currently on guideline directed medical therapy for NSTEMI. The patient does have a history of hypertension, and hyperlipidemia. Labs are reviewed. White count 6.4, hemoglobin 14.3, sodium 136, potassium 4.0, bicarb 24, BUN 10, creatinine 1.01. He reports absence of chest pain, palpitations dyspnea, diaphoresis. He is otherwise well, we will continue to follow patient. Objective - Vital Signs Vital signs: Vital Signs Temp 98.2 F 02/05/24 04:00 Pulse 59 L 02/05/24 07:00 Resp 15 02/05/24 07:00 BP 94/75 02/05/24 07:00 Pulse Ox 96 02/05/24 07:00 FiO2 Intake & Output 02/04/24 02/05/24 02/05/24 18:59 06:59 18:59 Intake Total 654.195 346.855 20 Output Total 2700 1200 Balance -2045.805 -853.145 20 Weight 97 kg 95.9 kg Intake: IV 240 240 20 .9 kvo 180 20 Sodium Chloride 0.9% 1, 240 60 000 ml In Empty Bag 1 bag @ 100 mls/hr IV .Q10H [facility] Rx#:[id number] Intake, IV Titration 164.195 106.855 Amount Heparin Sod,Pork in 0.45% 164.195 106.855 NaCl 25,000 unit In 0.45 % NaCl 1 250ml.bag @ 10. 399 UNITS/KG/HR 10 mls/hr IV .Q24H [facility] Rx#: [id number] Oral 250 Output: Urine 2700 1200 Other: Voiding Method Toilet Toilet - Exam GENERAL: No acute distress, Well developed, well nourished. On Room air. HEENT: Pupils are round and equally reacting to light. EOMI. No scleral icterus. No conjunctival pallor. Normocephalic, atraumatic. CARDIOVASCULAR: S1 and S2 present. No murmurs, rubs, or gallops. PULMONARY: Chest is clear to auscultation, no wheezing or crackles. ABDOMEN: Soft, nontender, nondistended, normoactive bowel sounds. No palpable organomegaly. MUSCULOSKELETAL: No joint swelling or deformity. EXTREMITIES: No cyanosis, clubbing, or pedal edema. PSYCH: The patient is alert and oriented x3 NEUROLOGICAL: Gross neurological examination did not reveal any focal deficits. SKIN: No rashes. no petechiae. - Labs CBC & Chem 7: 02/05/24 05:07 02/05/24 05:07 Labs: Abnormal Lab Results - Last 24 Hours (Table) 02/05/24 02/05/24 Range/Units 05:07 05:07 APTT 38.2 H (22.0-30.0) sec Sodium 136 L (137-145) mmol/L Chloride 110 H (98-107) mmol/L Assessment and Plan Assessment: NSTEMI with 90% LCA stenosis, secondary to SCAD status post catheterization Hypertension Hyperlipidemia Plan: Cardiac monitoring Continue IV heparin Nitroglycerin sublingual tab as needed for chest pain Continue Plavix 75 mg p.o. daily, Lipitor 40 mg p.o. daily and aspirin 81 p.o. daily Metoprolol tartrate 12.5 mg p.o. twice daily Continue lisinopril 10 mg p.o. daily Cardiology following Continue DVT and GI prophylaxis Continue heart healthy diet Hemodynamically stable, can be downgraded with telemetry today We will continue to follow make recommendations along the way.
--- NOTE | 2024-02-05 14:46 | P.PN ---
Subjective Progress Note Date: 02/05/24 Patient is a 54-year-old male with hypertension, hyperlipidemia, abdominal aortic aneurysm, and ascending aortic aneurysm who came in for chest pressure. He reported that this morning when he woke up he experienced a chest pressure that with an intensity of 8 out of 10 that was constant and was radiating to both of his arms and he did not experience relief with rest. He reported that he was experiencing intermittent chest pressures of the same intensity throughout the years and he believes this is due to his aneurysms. Today the chest pressure did not go away which led him to seek care. He denied shortness of breath, calf tenderness, nausea, sweats, vomiting, lightheadedness, palpitations, changes in vision, facial asymmetry, weakness, tremors, or recent travel. In the ER, EKG showed sinus rhythm with a rate of [address] elevations and Q waves in lead III. Troponin less than 0.0 12. WBC 7.9 hemoglobin 15.5 platelet count 192 potassium 140 potassium 4.6 BUN 14 creatinine 1.18 calcium 9.1 magnesium 2.3. ER CXR: No acute process. 02/04/2024 patient seen and examined at bedside. Patient is still in ICU. He did not experience any new symptoms or has any new complaints overnight. Vital signs were stable overnight. WBC 7.2 hemoglobin 14.8 platelet count 164,000 PTT 49.6 sodium 138 potassium 4.2 BUN 9 creatinine 1 glucose 81 troponin peaked at 1 /18 11 p.m. at 3.7 triglycerides 114 cholesterol 208 LDL 143 VLDL 22 HDL 41 echocardiogram showed left ventricular ejection fraction 50 to 55% with mild basal inferior wall hypokinesia and mild biatrial dilatation. 02/05/2024 patient seen and examined at bedside. Patient is still in ICU. Patient reported he had chest pressure yesterday afternoon but resolved with nitroglycerin. He did not experience any new symptoms or has any new complaints overnight. Vital signs were stable overnight. WBC 6.4 hemoglobin 14.3 platelet count 1 75,000 PTT 38.2 sodium 136 potassium 4.0 chloride 110 BUN 10 creatinine 1.01 calcium 8.7 magnesium 2.2 The rest of the review of systems is negative. GENERAL: The patient is alert and oriented x3, not in any acute distress. Well developed, well nourished. HEENT: Pupils are round and equally reacting to light. EOMI. No scleral icterus. No conjunctival pallor. Normocephalic, atraumatic. No pharyngeal erythema. No thyromegaly. CARDIOVASCULAR: S1 and S2 present. No murmurs, rubs, or gallops. PULMONARY: CTA, no wheezing or crackles. ABDOMEN: Soft, nontender, nondistended, normoactive bowel sounds. No palpable organomegaly MUSCULOSKELETAL: No joint swelling or deformity. EXTREMITIES: No cyanosis, clubbing, or pedal edema. NEUROLOGICAL: Gross neurological examination did not reveal any focal deficits. SKIN: No rashes. Assessment: 53-year-old male who came in for chest pressure. EKG showed ST elevations in inferior wall. 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 Cardiac monitoring Continue IV heparin Nitroglycerin sublingual tab as needed for chest pain Tylenol 650 mg p.o. every 6 as needed for pain Continue Plavix 75 mg p.o. daily Continue Lipitor 40 mg p.o. daily Continue aspirin 81 p.o. daily Metoprolol tartrate 12.5 mg p.o. twice daily, hold for HR < 60 CBC, BMP, Mg in the morning Consult pulmonary for intensive care management Cardiology following Chronic conditions #. Hypertension Continue lisinopril 10 mg p.o. daily #. Hyperlipidemia Continue rosuvastatin 5 mg daily F: Oral fluid intake E: None N: Heart healthy diet A: self ambulation DVT ppx: IV heparin GI ppx: Protonix 40 mg p.o. daily Dispo: Estimated length of stay greater than 2 midnights for evaluation of ST segment elevation AK of the inferior wall. Ekaterina Burroughs MD PGY-1 IM Dictation was produced using [employer] dictation software. please excuse any grammatical, word or spelling errors. I saw and evaluated the patient during the downey and critical portions of this encounter, and discussed the case in detail with the resident author of this note, I agree with the Assessment and Plan, and my changes, if any, are mentioned below. Patient reports no chest pain today. Awaiting further Cardiology recommendations. Objective - Vital Signs Vital signs: Vital Signs Temp 97.9 F 02/05/24 12:00 Pulse 74 02/05/24 13:00 Resp 29 H 02/05/24 13:00 BP 103/80 02/05/24 13:00 Pulse Ox 95 02/05/24 13:00 FiO2 Intake & Output 02/04/24 02/05/24 02/05/24 18:59 06:59 18:59 Intake Total 654.195 346.855 140 Output Total 2700 1200 800 Balance -2045.805 -853.145 -660 Weight 97 kg 95.9 kg Intake: IV 240 240 140 .9 kvo 180 140 Sodium Chloride 0.9% 1, 240 60 000 ml In Empty Bag 1 bag @ 100 mls/hr IV .Q10H [facility] Rx#:[id number] Intake, IV Titration 164.195 106.855 Amount Heparin Sod,Pork in 0.45% 164.195 106.855 NaCl 25,000 unit In 0.45 % NaCl 1 250ml.bag @ 10. 399 UNITS/KG/HR 10 mls/hr IV .Q24H [facility] Rx#: [id number] Oral 250 Output: Urine 2700 1200 800 Other: Voiding Method Toilet Toilet Toilet # Bowel Movements 1 - Labs CBC & Chem 7: 02/05/24 05:07 02/05/24 05:07 Labs: Abnormal Lab Results - Last 24 Hours (Table) 02/05/24 02/05/24 02/05/24 Range/Units 05:07 05:07 12:25 APTT 38.2 H 55.7 H (22.0-30.0) sec Sodium 136 L (137-145) mmol/L Chloride 110 H (98-107) mmol/L
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
[2024-02-06 03:58] VITALS: TEMP 97.9
[2024-02-06 07:12] LABS: Basophils # (A) 0.1 k/uL (0-0.2); Basophils % (A) 1 %; Eosinophils # (A) 0.4 k/uL (0-0.7); Eosinophils % (A) 6 %; HCT 46.8 % (39.0-53.0); Lymphocytes # (A) 1.4 k/uL (1.0-4.8); Lymphocytes % (A) 21 %; MCH 29.5 pg (25.0-35.0); MCHC 32.1 g/dL (31.0-37.0); Mean Platelet Volume 7.4; Monocytes # (A) 0.6 k/uL (0-1.0); Monocytes % (A) 9 %; Neutrophils # (A) 4.3 k/uL (1.3-7.7); Neutrophils % (A) 62 %; Platelet Count 187 k/uL (150-450); RBC 5.09 m/uL (4.30-5.90); RDW 13.3 % (11.5-15.5)
[2024-02-06 07:43] LABS: African American GFR (CKD) 87 (>60 ml/min/1.73 sqM); Anion Gap 5 mmol/L; Blood Urea Nitrogen 10 mg/dL (9-20); Carbon Dioxide 26 mmol/L (22-30); Chloride 106 mmol/L (98-107); Glucose 79 mg/dL (74-99); Magnesium 2.2 mg/dL (1.6-2.3); Non-African American GFR(CKD) 75 (>60 ml/min/1.73 sqM); Potassium 4.4 mmol/L (3.5-5.1); Sodium 137 mmol/L (137-145)
[2024-02-06 11:35] VITALS: BP 106/77; PULSE 64; RESP 15
--- NOTE | 2024-02-06 15:21 | P.DS ---
Providers Date of admission: 02/03/24 13:07 Expected date of discharge: 02/06/24 Attending physician: Jeremy Delacruz MD Consults: 02/03/24 13:06 Consult Physician Urgent Consulting Provider: Nikhil Sue Consult Reason/Comments: stemi Do you want consulting provider notified?: Already Contacted 02/03/24 13:42 Consult Physician Routine Consulting Provider: [facility] Consult Reason/Comments: Post Interventional Patient Do you want consulting provider notified?: Already Contacted 02/03/24 18:43 Consult Physician Routine Consulting Provider: Aristeo Lee Consult Reason/Comments: NSTEMI post-catherterization intensive care Do you want consulting provider notified?: Yes Primary care physician: Anita Blandon Hospital Course: Discharge diagnosis: #. Inferior wall STEMI, type II secondary to SCAD status post catheterization #. Hypertension #. Hyperlipidemia Hospital course: Patient is a 54-year-old male with hypertension, hyperlipidemia, abdominal aortic aneurysm, and ascending aortic aneurysm who came in for chest pressure. He reported that this morning when he woke up he experienced a chest pressure that with an intensity of 8 out of 10 that was constant and was radiating to both of his arms and he did not experience relief with rest. He reported that he was experiencing intermittent chest pressures of the same intensity thr oughout the years and he believes this is due to his aneurysms. Today the chest pressure did not go away which led him to seek care. He denied shortness of breath, calf tenderness, nausea, sweats, vomiting, lightheadedness, palpitations, changes in vision, facial asymmetry, weakness, tremors, or recent travel. In the ER, EKG showed sinus rhythm with a rate of [address] elevations and Q waves in lead III. Troponin less than 0.0 12. WBC 7.9 hemoglobin 15.5 platelet count 192 potassium 140 potassium 4.6 BUN 14 creatinine 1.18 calcium 9.1 magnesium 2.3. ER CXR showed No acute process. Patient was admitted for evaluation of inferior wall STEMI type II secondary to scad. Cardiology consulted and catheterization was done and found to have 90% stenosis of left circumflex artery with spontaneous dissection. Patient admitted to the ICU status post catheterization with IV heparin, sublingual nitroglycerin, Plavix, aspirin, metoprolol tartrate. Patient was stable and symptoms improved post catheterization. However, on 02/04, patient had episodes of chest pressure in the afternoon and was kept for 1 more day for observation and IV heparin was continued. Today, patient did not have any new or worsening symptoms overnight and vitals were stable. Cardiology has cleared him for discharge. Patient was discharged to home with prescriptions of aspirin, Plavix, Crestor, metoprolol tartrate and nitroglycerin oral meds, and advised to follow-up with health unit coordinator and PCP in 1 week on outpatient basis. Physical examination: Vital signs reviewed General: non toxic, no distress, appears at stated age, normal weight Derm: no unusual rashes/lesions, warm Head: atraumatic, normocephalic, symmetric Eyes: EOMI, anicteric sclera, pupils equal round reactive to light ENT: Nose and ears atraumatic Neck: No cervical lymphadenopathy, trachea midline, supple Mouth: no lip lesion, mucus membranes moist Cardiovascular: S1S2 reg, no murmur Lungs: CTA bilateral, no rhonchi, no rales, no accessory muscle use Abdominal: soft, nondistended, nontender to palpation, no guarding Ext: muscle strength 5 out of 5 in all 4 extremities grossly, no gross muscle atrophy, no contractures, positive dorsalis pedis pulse bilateral, no extremity edema Neuro: CN II-XI grossly intact, no gross focal neuro deficits Psych: Alert, oriented, appropriate affect and mood A total of 38 minutes of time were spent preparing this complex discharge summary. Patient was discharged on 02/06/2024 at 934. I have seen and evaluated the patient today. Discussed with the resident and agree with the residents finding and plan as documented in the resident's note. Changes highlighted in blue font. Patient Condition at Discharge: Stable Plan - Discharge Summary Discharge Rx Participant: No New Discharge Prescriptions: New Aspirin 81 mg PO DAILY #90 tab Clopidogrel [Plavix] 75 mg PO DAILY #90 tab Rosuvastatin [Crestor] 20 mg PO DAILY #90 tablet Metoprolol Tartrate [Lopressor] 12.5 mg PO BID #180 tab Nitroglycerin Sl Tabs [Nitrostat] 0.4 mg SUBLINGUAL Q5M PRN #25 tab PRN Reason: Chest Pain Continue lisinopriL [Zestril] 10 mg PO DAILY@1200 Acetaminophen Tab [Tylenol] 650 mg PO Q6H PRN PRN Reason: Fever And/ Or Pain Discontinued Rosuvastatin Calcium [Crestor] 5 mg PO HS Discharge Medication List Acetaminophen Tab [Tylenol] 650 mg PO Q6H PRN 02/03/24 [History] lisinopriL [Zestril] 10 mg PO DAILY@1200 02/03/24 [History] Aspirin 81 mg PO DAILY #90 tab 02/06/24 [Rx] Clopidogrel [Plavix] 75 mg PO DAILY #90 tab 02/06/24 [Rx] Metoprolol Tartrate [Lopressor] 12.5 mg PO BID #180 tab 02/06/24 [Rx] Nitroglycerin Sl Tabs [Nitrostat] 0.4 mg SUBLINGUAL Q5M PRN #25 tab 02/06/24 [Rx] Rosuvastatin [Crestor] 20 mg PO DAILY #90 tablet 02/06/24 [Rx] Follow up Appointment(s)/Referral(s): Nikhil Sue DO [STAFF PHYSICIAN] - 1 Week (Cardiology will call you with an apt when they pull your records. ) Anita Blandon III, MD [Primary Care Provider] - 02/12/24 10:00 am Patient Instructions/Handouts: Heart Attack (DC) Activity/Diet/Wound Care/Special Instructions: Please see your PCP and [employer] (Dr. Sue) Discharge Disposition: HOME SELF-CARE
--- NOTE | 2024-02-06 19:51 | PN ---
PROGRESS NOTE DATE OF SERVICE: 02/06/2024 SUBJECTIVE: This is a 54-year-old male who is seen today in room 351. He is on room air. No IV fluids. The patient is hoping to be discharged home later today. He denies any chest pain or chest discomfort. Current labs include a white count 7, hemoglobin 15, hematocrit 46.8, normal platelet count. Sodium, potassium chloride, CO2, anion gap, BUN, and creatinine, are all within normal range. PHYSICAL EXAMINATION: VITAL SIGNS: Current vital signs, temperature 97.9, heart rate 64, respiratory rate 15, blood pressure 106/77, room air saturation 97%. GENERAL: He appears in no acute distress. HEENT: Grossly unremarkable. NECK: Supple. Full range of motion. No adenopathy. Neck veins are flat. CARDIOVASCULAR: Reveals regular rhythm and rate. S1, S2 normal. LUNGS: Reveal clear breath sounds. No wheezes, rhonchi, or crackles. ABDOMEN: Soft, bowel sounds are heard. EXTREMITIES: Intact. Without cyanosis, clubbing, or edema. SKIN: Without rash. NEUROLOGIC: Brief, but nonfocal. ASSESSMENT: 1. Status post myocardial infarction, with 90% stenosis of the left coronary artery, secondary to coronary artery disease, status post catheterization. 2. Hypertension. 3. Hyperlipidemia. PLAN: The patient is doing well. The patient will likely be discharged home today, he was approved by his primary service and Cardiology. The patient is currently on room air. Not receiving any IV fluids. He has not had any chest pain or chest discomfort. From the pulmonary standpoint, the patient is stable. We will continue to follow should the patient not be discharged. Labs, x-rays, and medications are all reviewed. MMODL / IJN: [id number] /
--- NOTE | 2024-02-06 21:06 | PN ---
PROGRESS NOTE DATE OF SERVICE: 02/06/2024 SUBJECTIVE: The patient is seen today in room 351. He is on room air. No IV fluids. The patient is hoping to be discharged home later today. He denies any chest pain or chest discomfort. All in all, he is doing very well. CURRENT LABORATORY DATA: Includes a white count of 7, hemoglobin 15, hematocrit 46.8, and a normal platelet count. Sodium 137, potassium 4.4, chloride 106, CO2 of 26, BUN and creatinine were 10 and 1.12. PHYSICAL EXAMINATION: VITAL SIGNS: Current vital signs include temperature 97.9, heart rate 64, respiratory rate 15, blood pressure 106/77, mean 86, and room air saturation 97%. GENERAL: He appears in no acute distress. HEENT: Grossly unremarkable. NECK: Supple. Full range of motion. No adenopathy. Neck veins are flat. CARDIOVASCULAR: Reveals regular rhythm and rate. S1, S2 normal. No heart murmur. LUNGS: Clear. Breath sounds are equal. There are no wheezes, rhonchi, or crackles. ABDOMEN: Soft. Bowel sounds are heard. No masses or tenderness. EXTREMITIES: Intact. No cyanosis, clubbing, or edema. SKIN: Without rash. NEUROLOGIC: Brief, but nonfocal. ASSESSMENT: 1. Non ST-segment elevation myocardial infarction, with 90% left coronary artery stenosis, secondary to coronary artery disease, status post catheterization. 2. Hypertension. 3. Hyperlipidemia. PLAN: The patient is doing well. He continues on room air. No IV fluids. He is not having any chest pain or chest discomfort. We will continue to follow the patient, make recommendations along the way. Prognosis is guarded. The patient is hoping to be discharged home later today. We will leave that up to the primary service, with input from Cardiology. MMODL / IJN: [id number] /
== END 2024-02-06 12:06 | disposition home or self-care (01) | DRG 280 ==
LOC: EC 12:36 → 2SICU 13:07 → 3SCARD 02-05 21:11
PROVIDERS: ADMIT Family Medicine; ATTEND Family Medicine
PROC: B2111ZZ Fluoroscopy of Multiple Coronary Arteries using Low Osmolar Contrast (ICD-10-PCS; 2024-02-03)
PROC: 4A023N7 Measurement of Cardiac Sampling and Pressure, Left Heart, Percutaneous Approach (ICD-10-PCS; principal; 2024-02-03 12:51)
DX: I25.10 Atherosclerotic heart disease of native coronary artery without angina pectoris (principal); I25.42 Coronary artery dissection; I21.A1 Myocardial infarction type 2; E78.5 Hyperlipidemia, unspecified; I71.21 Aneurysm of the ascending aorta, without rupture; I10 Essential (primary) hypertension; I71.40 Abdominal aortic aneurysm, without rupture, unspecified; Z87.891 Personal history of nicotine dependence
CPT/HCPCS: 36415; 71045; 80048; 80053; 80061; 83735; 84484; 85025; 85027; 85610; 85730; 93005; 93306; 93458; 96374; 99285

== ENCOUNTER 2024-02-08 20:51 | Observation (INO) | payer BC ==
[2024-02-08 21:28] LABS: Basophils # (A) 0.1 k/uL (0-0.2); Basophils % (A) 1 %; Eosinophils # (A) 0.2 k/uL (0-0.7); Eosinophils % (A) 2 %; HCT 49.6 % (39.0-53.0); HGB 16.4 gm/dL (13.0-17.5); Lymphocytes # (A) 0.8 k/uL (1.0-4.8); Lymphocytes % (A) 8 %; MCH 30.4 pg (25.0-35.0); MCHC 33.1 g/dL (31.0-37.0); MCV 91.9 fL (80.0-100.0); Mean Platelet Volume 7.5; Monocytes # (A) 0.7 k/uL (0-1.0); Monocytes % (A) 6 %; Neutrophils # (A) 8.8 k/uL (1.3-7.7); Neutrophils % (A) 83 %; Platelet Count 186 k/uL (150-450); RDW 13.4 % (11.5-15.5); WBC 10.6 k/uL (3.8-10.6)
--- NOTE | 2024-02-08 21:31 | XR ---
EXAMINATION TYPE: XR chest 2V DATE OF EXAM: 02/08/2024 9:25 PM COMPARISON: Chest radiographs from CLINICAL INDICATION: Male, 54 years old with history of dysrhythmia; [facility] TECHNIQUE: XR chest 2V Frontal and lateral views of the chest. FINDINGS: Lungs/Pleura: There is no evidence of pleural effusion, focal consolidation, or pneumothorax. Pulmonary vascularity: Unremarkable. Heart/mediastinum: Cardiomediastinal silhouette is unremarkable. Musculoskeletal: No acute osseous pathology. Other findings: None IMPRESSION: No acute cardiopulmonary disease/process. [facility], , 02/08/2024 9:28 PM
[2024-02-08 21:53] LABS: Partial Thromboplastin Time 25.4 sec (22.0-30.0)
[2024-02-08 21:54] LABS: ALT 98 U/L (4-49); AST 53 U/L (17-59); African American GFR (CKD) 57 (>60 ml/min/1.73 sqM); Albumin 4.6 g/dL (3.5-5.0); Alkaline Phosphatase 46 U/L (38-126); Anion Gap 8 mmol/L; Blood Urea Nitrogen 23 mg/dL (9-20); Calcium 9.3 mg/dL (8.4-10.2); Carbon Dioxide 21 mmol/L (22-30); Chloride 109 mmol/L (98-107); Glucose 88 mg/dL (74-99); Non-African American GFR(CKD) 49 (>60 ml/min/1.73 sqM); Potassium 4.8 mmol/L (3.5-5.1); Sodium 138 mmol/L (137-145); Total Bilirubin 0.9 mg/dL (0.2-1.3); Total Protein 7.8 g/dL (6.3-8.2)
[2024-02-08] MEDS ORDERED: NALOXONE 0.4 MG/ML 1 ML VIAL IV PRN (22:54)
--- NOTE | 2024-02-08 22:54 | ED ---
Arrhythmia/Palpitations HPI - General Chief Complaint: Arrhythmia/Palpitations Stated Complaint: High Heart Rate Time Seen by Provider: 02/08/24 20:56 Source: patient Mode of arrival: ambulatory Limitations: no limitations - History of Present Illness Initial Comments: 54-year-old male with recent diagnosis of SCAD who presents to the emergency department with elevated heart rate. Patient was hospitalized on Saturday for STEMI and found to have SCAD. He was discharged home on Plavix, Lopressor, Crestor. He has been taking his medications as directed. He was told that he should avoid tachycardia. States that he was at home monitored his heart rate and found it to be 120. He states he was resting when the heart rate was elevated. He states he has been taking all of his medications as directed. He denies any chest pain or shortness of breath. He does have a sense of lightheadedness. No headache or visual changes. Denies any fevers. No other alleviating, precipitating or modifying factors - Related Data Home Medications Medication Instructions Recorded Confirmed Acetaminophen Tab [Tylenol] 650 mg PO Q6H PRN 02/03/24 02/03/24 lisinopriL [Zestril] 10 mg PO DAILY@1200 02/03/24 02/03/24 Previous Rx's Medication Instructions Recorded Aspirin 81 mg PO DAILY #90 tab 02/06/24 Clopidogrel [Plavix] 75 mg PO DAILY #90 tab 02/06/24 Metoprolol Tartrate [Lopressor] 12.5 mg PO BID #180 tab 02/06/24 Nitroglycerin Sl Tabs [Nitrostat] 0.4 mg SUBLINGUAL Q5M PRN #25 tab 02/06/24 Rosuvastatin [Crestor] 20 mg PO DAILY #90 tablet 02/06/24 Allergies Allergy/AdvReac Type Severity Reaction Status Date / Time No Known Allergies Allergy Verified 02/08/24 20:55 Review of Systems ROS Statement: Those systems with pertinent positive or pertinent negative responses have been documented in the HPI. ROS Other: All systems not noted in ROS Statement are negative. Past Medical History Past Medical History: Coronary Artery Disease (CAD), Chest Pain / Angina, Hypertension, Pneumonia, Skin Disorder Additional Past Medical History / Comment(s): migraine History of Any Multi-Drug Resistant Organisms: None Reported Past Surgical History: No Surgical Hx Reported Past Psychological History: No Psychological Hx Reported Smoking Status: Former smoker Past Alcohol Use History: Rare Past Drug Use History: Marijuana - Past Family History Father Additional Family Medical History / Comment(s): enlarged aorta, possibly an aortic aneurysm, is . Brother(s) Additional Family Medical History / Comment(s): marfan's syndrome Mother Family Medical History: Diabetes Mellitus Additional Family Medical History / Comment(s): from brain aneurysm. General Exam Limitations: no limitations General appearance: alert, in no apparent distress Head exam: Present: atraumatic, normocephalic, normal inspection Eye exam: Present: normal appearance, PERRL, EOMI. Absent: scleral icterus, conjunctival injection, periorbital swelling ENT exam: Present: normal exam, mucous membranes moist Neck exam: Present: normal inspection. Absent: tenderness, meningismus, lymphadenopathy Respiratory exam: Present: normal lung sounds bilaterally. Absent: respiratory distress, wheezes, rales, rhonchi, stridor Cardiovascular Exam: Present: normal rhythm, tachycardia, normal heart sounds. Absent: systolic murmur, diastolic murmur, rubs, gallop, clicks GI/Abdominal exam: Present: soft, normal bowel sounds. Absent: distended, tenderness, guarding, rebound, rigid Extremities exam: Present: normal inspection, full ROM, normal capillary refill. Absent: tenderness, pedal edema, joint swelling, calf tenderness Back exam: Present: normal inspection Neurological exam: Present: alert, oriented X3, CN II-XII intact Psychiatric exam: Present: normal affect, normal mood Skin exam: Present: warm, dry, intact, normal color. Absent: rash Course Vital Signs 02/08/24 02/08/24 02/08/24 20:52 21:06 21:08 Temperature 98 F Pulse Rate 100 97 Respiratory 17 18 Rate Blood Pressure 102/68 117/76 Blood Pressure 93/72 [Left Arm Sitting] Blood Pressure 101/62 [Left Arm Standing] Blood Pressure 99/70 [Left Arm Supine] O2 Sat by Pulse 97 99 Oximetry 02/08/24 02/09/24 02/09/24 23:46 03:13 06:18 Temperature 100.3 F H Pulse Rate 97 84 91 Respiratory 16 16 18 Rate Blood Pressure 100/68 92/68 104/81 Blood Pressure [Left Arm Sitting] Blood Pressure [Left Arm Standing] Blood Pressure [Left Arm Supine] O2 Sat by Pulse 98 96 99 Oximetry 02/09/24 02/09/24 07:13 07:19 Temperature 99.2 F Pulse Rate 85 Respiratory 16 Rate Blood Pressure 109/77 Blood Pressure [Left Arm Sitting] Blood Pressure [Left Arm Standing] Blood Pressure [Left Arm Supine] O2 Sat by Pulse 99 Oximetry Medical Decision Making - Medical Decision Making Was pt. sent in by a medical professional or institution (, [facility]IA, PROCESSING TECHNICIAN, urgent care, hospital, or [facility]...) When possible be specific @ -No Did you speak to anyone other than the patient for history (EMS, parent, family, police, friend...)? What history was obtained from this source @ -No Did you review nursing and triage notes (agree or disagree)? Why? @ -I reviewed and agree with nursing and triage notes Were old charts reviewed (outside hosp., previous admission, EMS record, old EKG, old radiological studies, urgent care reports/EKG's, [facility] records)? Report findings @ -I reviewed the discharge summary on the patient from the Differential Diagnosis (chest pain, altered mental status, abdominal pain women, abdominal pain men, vaginal bleeding, weakness, fever, dyspnea, syncope, headache, dizziness, GI bleed, back pain, seizure, CVA, palpatations, mental health, musculoskeletal)? @ -Differential Palpitations Ventricular arrhythmias, atrial arrhythmias, myocardial infarction, anemia, thyrotoxicosis, electrolyte imbalance, hypokalemia, pulmonary embolism, pulmonary disease, drugs, alcohol, anxiety, stress.... This is not meant to be an all-inclusive list. EKG interpreted by me (3pts min.). @ -EKg demonstrates sinus rhythm with a rate of 95. MO interval 161. QRS 91. QTC 369. No ST segment elevations or depressions X-rays interpreted by me (1pt min.). @ -Yes and demonstrates no acute process CT interpreted by me (1pt min.). @ -None done U/S interpreted by me (1pt. min.). @ -None done What testing was considered but not performed or refused? (CT, X-rays, U/S, labs)? Why? @ -None What meds were considered but not given or refused? Why? @ -None Did you discuss the management of the patient with other professionals (professionals i.e. , PA, PROCESSING TECHNICIAN, lab, RT, psych nurse, social director, pilates coordinator, teacher, customs and immigration officer, renal case manager)? Give summary @ -Spoke with Dr. Avila who agreed to admit the patient overnight Was smoking cessation discussed for >3mins.? @ -No Was critical care preformed (if so, how long)? @ -No Were there social determinants of health that impacted care today? How? (Homelessness, low income, unemployed, alcoholism, drug addiction, transportation, low edu. Level, literacy, decrease access to med. care, chcf, rehab)? @ -No Was there de-escalation of care discussed even if they declined (Discuss DNR or withdrawal of care, Hospice)? DNR status @ -No What co-morbidities impacted this encounter? (DM, HTN, Smoking, COPD, CAD, Cancer, CVA, ARF, Chemo, Hep., AIDS, mental health diagnosis, sleep apnea, morbid obesity)? @ - spontaneous coronary artery dissection Was patient admitted / discharged? Hospital course, mention meds given and route, prescriptions, significant lab abnormalities, going to OR and other pertinent info. @ -Upon arrival patient seen and evaluated in room 5. Thorough history and physical exam was performed. IV access was established. Laboratory studies were conducted. Chest x-ray was performed. Patient does have tachycardia with hypotension. He is started on normal saline at 130 cc/h. I did recommend admission for cardiology consultation. I will trend the patient's troponins. Patient was agreeable to remain on cardiac monitoring. I spoke with Dr. Avila for the admission Undiagnosed new problem with uncertain prognosis? @ -No Drug Therapy requiring intensive monitoring for toxicity (Heparin, Nitro, Insulin, Cardizem)? @ -No Were any procedures done? @ -No Diagnosis/symptom? @ -Acute palpitations, sinus tachycardia, hypotension, recent spontaneous coronary artery dissection Acute, or Chronic, or Acute on Chronic? @ -Acute Uncomplicated (without systemic symptoms) or Complicated (systemic symptoms)? @ -Complicated Side effects of treatment? @ -No Exacerbation, Progression, or Severe Exacerbation? @ -No Poses a threat to life or bodily function? How? (Chest pain, [place], [place], pneumonia, PE, COPD, DKA, ARF, appy, cholecystitis, CVA, Diverticulitis, Homicidal, Suicidal, threat to staff... and all critical care pts) @ -No - Lab Data Result diagrams: 02/09/24 04:40 02/09/24 04:40 Lab Results 02/08/24 02/08/24 02/08/24 Range/Units 21:15 21:15 21:15 WBC 10.6 (3.8-10.6) k/uL RBC 5.40 (4.30-5.90) m/uL Hgb 16.4 (13.0-17.5) gm/dL Hct 49.6 (39.0-53.0) % MCV 91.9 (80.0-100.0) fL MCH 30.4 (25.0-35.0) pg MCHC 33.1 (31.0-37.0) g/dL RDW 13.4 (11.5-15.5) % Plt Count 186 (150-450) k/uL MPV 7.5 Neutrophils % 83 % Lymphocytes % 8 % Monocytes % 6 % Eosinophils % 2 % Basophils % 1 % Neutrophils # 8.8 H (1.3-7.7) k/uL Lymphocytes # 0.8 L (1.0-4.8) k/uL Monocytes # 0.7 (0-1.0) k/uL Eosinophils # 0.2 (0-0.7) k/uL Basophils # 0.1 (0-0.2) k/uL PT 11.0 (10.0-12.5) sec INR 1.0 (<1.2) APTT 25.4 (22.0-30.0) sec Sodium 138 (137-145) mmol/L Potassium 4.8 (3.5-5.1) mmol/L Chloride 109 H (98-107) mmol/L Carbon Dioxide 21 L (22-30) mmol/L Anion Gap 8 mmol/L BUN 23 H (9-20) mg/dL Creatinine 1.59 H (0.66-1.25) mg/dL Est GFR (CKD-EPI)AfAm 57 (>60 ml/min/1.73 sqM) Est GFR (CKD-EPI)NonAf 49 (>60 ml/min/1.73 sqM) Glucose 88 (74-99) mg/dL Calcium 9.3 (8.4-10.2) mg/dL Magnesium 2.0 (1.6-2.3) mg/dL Total Bilirubin 0.9 (0.2-1.3) mg/dL AST 53 (17-59) U/L ALT 98 H (4-49) U/L Alkaline Phosphatase 46 (38-126) U/L Troponin I (0.000-0.034) ng/mL Total Protein 7.8 (6.3-8.2) g/dL Albumin 4.6 (3.5-5.0) g/dL 02/08/24 Range/Units 21:15 WBC (3.8-10.6) k/uL RBC (4.30-5.90) m/uL Hgb (13.0-17.5) gm/dL Hct (39.0-53.0) % MCV (80.0-100.0) fL MCH (25.0-35.0) pg MCHC (31.0-37.0) g/dL RDW (11.5-15.5) % Plt Count (150-450) k/uL MPV Neutrophils % % Lymphocytes % % Monocytes % % Eosinophils % % Basophils % % Neutrophils # (1.3-7.7) k/uL Lymphocytes # (1.0-4.8) k/uL Monocytes # (0-1.0) k/uL Eosinophils # (0-0.7) k/uL Basophils # (0-0.2) k/uL PT (10.0-12.5) sec INR (<1.2) APTT (22.0-30.0) sec Sodium (137-145) mmol/L Potassium (3.5-5.1) mmol/L Chloride (98-107) mmol/L Carbon Dioxide (22-30) mmol/L Anion Gap mmol/L BUN (9-20) mg/dL Creatinine (0.66-1.25) mg/dL Est GFR (CKD-EPI)AfAm (>60 ml/min/1.73 sqM) Est GFR (CKD-EPI)NonAf (>60 ml/min/1.73 sqM) Glucose (74-99) mg/dL Calcium (8.4-10.2) mg/dL Magnesium (1.6-2.3) mg/dL Total Bilirubin (0.2-1.3) mg/dL AST (17-59) U/L ALT (4-49) U/L Alkaline Phosphatase (38-126) U/L Troponin I 0.065 H* (0.000-0.034) ng/mL Total Protein (6.3-8.2) g/dL Albumin (3.5-5.0) g/dL Disposition Clinical Impression: Tachycardia, Coronary artery dissection, Hypotension Disposition: ADMITTED IP TO THIS HOSP Condition: Stable Is patient prescribed a controlled substance at d/c from ED?: No Time of Disposition: 22:54 Decision to Admit Reason: Admit from EC Decision Date: 02/08/24 Decision Time: 22:54
[2024-02-08] MEDS: SODIUM CHLORIDE 0.9% 1,000 ML IV SCH (23:03)
[2024-02-08] MEDS: ACETAMINOPHEN TAB 325 MG TAB PO PRN (23:14)
--- NOTE | 2024-02-09 03:40 | P.HPIM ---
History of Present Illness H&P Date: 02/09/24 History of present illness; 54-year-old man with PMH of CAD and hypertension with a recent hospitalization on Saturday for STEMI and was found to have SCAD. Presents to the emergency department today following a home monitored episode of tachycardia. He was discharged home on Plavix, Lopressor, Crestor and has been taking his medications as directed. He was told he should avoid tachycardia of any kind. He states that he was at home monitoring his heart rate and found to be 120 while he was resting. At that time he endorses feeling lightheaded, having generalized body aches and some numbness/tingling in his arms bilaterally. He denies having had any chest pain, shortness of breath, headache, visual changes at that time. Upon arrival in the emergency department he endorses developing a headache which has since resolved. He has no acute complaints at this time. Labratory review: -WBCs 10.6, hemoglobin 16.4, hematocrit 49.6, platelet 186; sodium 138, potassium 4.8, BUN 23, creatinine 1.59 -Troponin trend: 0.065 -> 0.051 Imaging: -Chest x-ray done in the ER showed no acute cardiopulmonary process or disease -EKG done in the ER showed sinus rhythm heart rate of 95, no ST segment elevation or depression seen, no T wave changes; QTc 369 Vitals: -Blood pressure 100/68, heart rate 97, respiratory rate 16, SpO2 98% on room air Patient admitted to internal medicine service REVIEW OF SYSTEMS: CONSTITUTIONAL: No fever, no malaise, no fatigue. HEENT: No recent visual problems or hearing problems. Denied any sore throat. CARDIOVASCULAR: No chest pain, orthopnea, PND, no palpitations, no syncope. PULMONARY: No shortness of breath, no cough, no hemoptysis. GASTROINTESTINAL: No diarrhea, no nausea, no vomiting, no abdominal pain. NEUROLOGICAL: No headaches, no weakness, no numbness. HEMATOLOGICAL: Denies any bleeding or petechiae. GENITOURINARY: Denies any burning micturition, frequency, or urgency. MUSCULOSKELETAL/RHEUMATOLOGICAL: Denies any joint pain, swelling, or any muscle pain. ENDOCRINE: Denies any polyuria or polydipsia. The rest of the 14-point review of systems is negative. PHYSICAL EXAMINATION: GENERAL: The patient is alert and oriented x3, not in any acute distress. Well developed, well nourished. HEENT: No scleral icterus. No conjunctival pallor. Normocephalic, atraumatic. CARDIOVASCULAR: S1 and S2 present. No murmurs, rubs, or gallops. PULMONARY: Chest is clear to auscultation, no wheezing or crackles. ABDOMEN: Soft, nontender, nondistended, normoactive bowel sounds. No palpable organomegaly. MUSCULOSKELETAL: No joint swelling or deformity. EXTREMITIES: No cyanosis, clubbing, or pedal edema. NEUROLOGICAL: Gross neurological examination did not reveal any focal deficits. SKIN: No rashes. Assessment and plan 53-year-old man PMH of his CAD and hypertension with recent hospitalization on Saturday for STEMI where he was found to have SCAD. Presents to the emergency department today for episode of tachycardia with associated lightheadedness, generalized body aches and numbness/tingling in his arms bilaterally. Discussed with the ED, he was admitted to the internal medicine service for further evaluation. #Sinus tachycardia #Recent inferior wall STEMI, type II secondary to SCAD s/p catheterization -Echocardiogram showed EF 50-55% -Continue home cardiac medications -Continue with 81 mg aspirin daily -Trend troponins: 0.065 -> 0.051 -Cardiac monitoring -Cardiology consulted #Hypertension -Continue lisinopril 10 mg daily #Hyperlipidemia -40 mg Lipitor daily #ERIS -Monitor BMP -C/w NS 130 ml/hr GI prohylaxis: Not indicated DVT prophylaxis: DVT prophylaxis: [place] Risk Score: 0 point (low risk for VTE, prophylaxis not indicated) Dictation was produced using [employer] dictation software. please excuse any grammatical, word or spelling errors. Past Medical History Past Medical History: Coronary Artery Disease (CAD), Chest Pain / Angina, Hypertension, Pneumonia, Skin Disorder Additional Past Medical History / Comment(s): migraine History of Any Multi-Drug Resistant Organisms: None Reported Past Surgical History: No Surgical Hx Reported Past Psychological History: No Psychological Hx Reported Smoking Status: Former smoker Past Alcohol Use History: Rare Past Drug Use History: Marijuana - Past Family History Father Additional Family Medical History / Comment(s): enlarged aorta, possibly an aortic aneurysm, is . Brother(s) Additional Family Medical History / Comment(s): marfan's syndrome Mother Family Medical History: Diabetes Mellitus Additional Family Medical History / Comment(s): from brain aneurysm. Medications and Allergies Home Medications Medication Instructions Recorded Confirmed Type Acetaminophen Tab [Tylenol] 650 mg PO Q6H PRN 02/03/24 02/03/24 History lisinopriL [Zestril] 10 mg PO DAILY@1200 02/03/24 02/03/24 History Aspirin 81 mg PO DAILY #90 tab 02/06/24 Rx Clopidogrel [Plavix] 75 mg PO DAILY #90 tab 02/06/24 Rx Metoprolol Tartrate [Lopressor] 12.5 mg PO BID #180 tab 02/06/24 Rx Nitroglycerin Sl Tabs [Nitrostat] 0.4 mg SUBLINGUAL Q5M PRN #25 tab 02/06/24 Rx Rosuvastatin [Crestor] 20 mg PO DAILY #90 tablet 02/06/24 Rx Allergies Allergy/AdvReac Type Severity Reaction Status Date / Time No Known Allergies Allergy Verified 02/08/24 20:55 Physical Exam Vitals: Vital Signs Temp Pulse Resp BP BP BP BP 02/09/24 03:13 84 16 92/68 02/08/24 23:46 97 16 100/68 02/08/24 21:08 93/72 101/62 99/70 02/08/24 21:06 97 18 117/76 02/08/24 20:52 98 F 100 17 102/68 Pulse Ox 02/09/24 03:13 96 02/08/24 23:46 98 02/08/24 21:08 02/08/24 21:06 99 02/08/24 20:52 97 Intake and Output 02/08/24 02/08/24 02/09/24 14:59 22:59 06:59 Other: Weight 90.718 kg Results CBC & Chem 7: 02/08/24 21:15 02/08/24 21:15 Labs: Abnormal Lab Results - Last 24 Hours (Table) 02/08/24 02/08/24 02/08/24 Range/Units 21:15 21:15 21:15 Neutrophils # 8.8 H (1.3-7.7) k/uL Lymphocytes # 0.8 L (1.0-4.8) k/uL Chloride 109 H (98-107) mmol/L Carbon Dioxide 21 L (22-30) mmol/L BUN 23 H (9-20) mg/dL Creatinine 1.59 H (0.66-1.25) mg/dL ALT 98 H (4-49) U/L Troponin I 0.065 H* (0.000-0.034) ng/mL 02/08/24 Range/Units 23:46 Neutrophils # (1.3-7.7) k/uL Lymphocytes # (1.0-4.8) k/uL Chloride (98-107) mmol/L Carbon Dioxide (22-30) mmol/L BUN (9-20) mg/dL Creatinine (0.66-1.25) mg/dL ALT (4-49) U/L Troponin I 0.051 H* (0.000-0.034) ng/mL
[2024-02-09 04:49] LABS: Basophils # (A) 0.1 k/uL (0-0.2); Basophils % (A) 1 %; Eosinophils # (A) 0.2 k/uL (0-0.7); Eosinophils % (A) 2 %; HGB 14.4 gm/dL (13.0-17.5); Lymphocytes # (A) 0.9 k/uL (1.0-4.8); Lymphocytes % (A) 12 %; MCH 29.7 pg (25.0-35.0); MCHC 32.6 g/dL (31.0-37.0); MCV 91.2 fL (80.0-100.0); Mean Platelet Volume 8.1; Monocytes # (A) 0.6 k/uL (0-1.0); Monocytes % (A) 8 %; Neutrophils # (A) 5.8 k/uL (1.3-7.7); Neutrophils % (A) 76 %; Platelet Count 162 k/uL (150-450); RBC 4.83 m/uL (4.30-5.90); WBC 7.7 k/uL (3.8-10.6)
[2024-02-09 05:03] LABS: African American GFR (CKD) 63 (>60 ml/min/1.73 sqM); Anion Gap 6 mmol/L; Blood Urea Nitrogen 26 mg/dL (9-20); Calcium 8.6 mg/dL (8.4-10.2); Carbon Dioxide 25 mmol/L (22-30); Chloride 108 mmol/L (98-107); Glucose 95 mg/dL (74-99); Non-African American GFR(CKD) 55 (>60 ml/min/1.73 sqM); Potassium 4.5 mmol/L (3.5-5.1); Sodium 139 mmol/L (137-145)
[2024-02-09 07:13] VITALS: TEMP 99.2
[2024-02-09] MEDS: CLOPIDOGREL 75 MG TAB PO SCH (08:01)
[2024-02-09] MEDS: ATORVASTATIN 40 MG TAB PO SCH (08:01)
[2024-02-09] MEDS: ASPIRIN 81 MG PO SCH (08:01)
[2024-02-09] MEDS: METOPROLOL TARTRATE 12.5 MG TAB PO SCH (10:59)
--- NOTE | 2024-02-09 11:01 | P.CRDCN ---
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 He was treated with dual antiplatelet therapy and was discharged home on low-dose Lopressor and lisinopril. He reports that he has prior history of abdominal aortic aneurysm. Will also noticed that he has dilated aortic root measuring at 4.8 cm. His echocardiogram showed preserved LV size and systolic function REVIEW OF SYSTEMS 14 point review of system is negative except what is mentioned above in HPI. PHYSICAL EXAMINATION Vital signs reviewed. Head: Normocephalic. Eyes: Sclerae nonicteric. Neck: Brisk carotid upstroke, no jugular venous distention. Lungs: Clear to auscultation. Heart: Regular rate and rhythm, S1-S2, no S3, no murmur or rub. Right radial exercise appears to be intact with appropriate healing, patent hemostasis Abdomen: Soft nontender, positive bowel sounds. Extremities: No edema, intact distal pulses. Neuro: Alert, oritented, no focal deficits. Detailed neuro exam was not performed. ASSESSMENT Sinus tachycardia Palpitations Recent inferior STEMI found to have aneurysm in scad and LCx History of abdominal and ascending aortic aneurysm. Essential hypertension, BP is currently low normal Dyslipidemia Cardiac testing Admission ECG shows sinus rhythm with nonspecific T wave inversions in lead III. Unchanged from prior exam. Echo shows preserved LV size and systolic function, no significant valvular abnormality, dilated aortic root measuring at 4.8 cm. PLAN Continue aspirin and Plavix Increase metoprolol from 12.5 mg twice daily to 25 mg twice daily. Decrease lisinopril from 10 mg to 2.5 mg daily because blood pressure is low normal. He is also experiencing lightheadedness dizziness and weakness at home which could be related to low blood pressure. I would recommend a 14-day extended Holter monitor to be picked up from the office on Saturday. I have given him written instructions how to do so. Patient is otherwise cleared from cardiac standpoint. Patient reports that he he had some subjective fevers. Would request primary team to evaluate if he has any infections which is causing him to have tachycardia. Gian Serrano MD, FACC, RPVI Past Medical History Past Medical History: Coronary Artery Disease (CAD), Chest Pain / Angina, Hypertension, Pneumonia, Skin Disorder Additional Past Medical History / Comment(s): migraine History of Any Multi-Drug Resistant Organisms: None Reported Past Surgical History: No Surgical Hx Reported Past Psychological History: No Psychological Hx Reported Smoking Status: Former smoker Past Alcohol Use History: Rare Past Drug Use History: Marijuana - Past Family History Father Additional Family Medical History / Comment(s): enlarged aorta, possibly an aortic aneurysm, is . Brother(s) Additional Family Medical History / Comment(s): marfan's syndrome Mother Family Medical History: Diabetes Mellitus Additional Family Medical History / Comment(s): from brain aneurysm. Medications and Allergies Home Medications Medication Instructions Recorded Confirmed Type Acetaminophen Tab [Tylenol] 650 mg PO Q6H PRN 02/03/24 02/03/24 History lisinopriL [Zestril] 10 mg PO DAILY@1200 02/03/24 02/03/24 History Aspirin 81 mg PO DAILY #90 tab 02/06/24 Rx Clopidogrel [Plavix] 75 mg PO DAILY #90 tab 02/06/24 Rx Metoprolol Tartrate [Lopressor] 12.5 mg PO BID #180 tab 02/06/24 Rx Nitroglycerin Sl Tabs [Nitrostat] 0.4 mg SUBLINGUAL Q5M PRN #25 tab 02/06/24 Rx Rosuvastatin [Crestor] 20 mg PO DAILY #90 tablet 02/06/24 Rx Allergies Allergy/AdvReac Type Severity Reaction Status Date / Time No Known Allergies Allergy Verified 02/08/24 20:55 Physical Exam Vitals: Vital Signs Temp Pulse Resp BP BP BP BP 02/09/24 09:00 75 14 100/66 02/09/24 07:19 85 16 109/77 02/09/24 07:13 99.2 F 02/09/24 06:18 100.3 F H 91 18 104/81 02/09/24 03:13 84 16 92/68 02/08/24 23:46 97 16 100/68 02/08/24 21:08 93/72 101/62 99/70 02/08/24 21:06 97 18 117/76 02/08/24 20:52 98 F 100 17 102/68 Pulse Ox 02/09/24 09:00 94 L 02/09/24 07:19 99 02/09/24 07:13 02/09/24 06:18 99 02/09/24 03:13 96 02/08/24 23:46 98 02/08/24 21:08 02/08/24 21:06 99 02/08/24 20:52 97 Intake and Output 02/08/24 02/09/24 02/09/24 22:59 06:59 14:59 Other: Weight 90.718 kg Results 02/09/24 04:40 02/09/24 04:40 Cardiac Enzymes 02/08/24 02/08/24 02/08/24 Range/Units 21:15 21:15 23:46 AST 53 (17-59) U/L Troponin I 0.065 H* 0.051 H* (0.000-0.034) ng/mL 02/09/24 Range/Units 04:40 AST (17-59) U/L Troponin I 0.041 H* (0.000-0.034) ng/mL Coagulation 02/08/24 Range/Units 21:15 PT 11.0 (10.0-12.5) sec APTT 25.4 (22.0-30.0) sec CBC 02/08/24 02/09/24 Range/Units 21:15 04:40 WBC 10.6 7.7 (3.8-10.6) k/uL RBC 5.40 4.83 (4.30-5.90) m/uL Hgb 16.4 14.4 (13.0-17.5) gm/dL Hct 49.6 44.0 (39.0-53.0) % Plt Count 186 162 (150-450) k/uL Comprehensive Metabolic Panel 02/08/24 02/09/24 Range/Units 21:15 04:40 Sodium 138 139 (137-145) mmol/L Potassium 4.8 4.5 (3.5-5.1) mmol/L Chloride 109 H 108 H (98-107) mmol/L Carbon Dioxide 21 L 25 (22-30) mmol/L BUN 23 H 26 H (9-20) mg/dL Creatinine 1.59 H 1.45 H (0.66-1.25) mg/dL Glucose 88 95 (74-99) mg/dL Calcium 9.3 8.6 (8.4-10.2) mg/dL AST 53 (17-59) U/L ALT 98 H (4-49) U/L Alkaline Phosphatase 46 (38-126) U/L Total Protein 7.8 (6.3-8.2) g/dL Albumin 4.6 (3.5-5.0) g/dL Current Medications Generic Name Dose Route Start Last Admin Trade Name Freq PRN Reason Stop Dose Admin Acetaminophen 650 mg 02/08/24 22:55 02/09/24 06:24 Acetaminophen Tab 325 Mg Tab PO 650 mg Q6H PRN Administration Fever and/ or Pain Aspirin 81 mg 02/09/24 09:00 02/09/24 08:01 Aspirin 81 Mg PO 81 mg DAILY DEMETRIO Administration Atorvastatin Calcium 40 mg 02/09/24 09:00 02/09/24 08:01 Atorvastatin 40 Mg Tab PO 40 mg DAILY DEMETRIO Administration Clopidogrel Bisulfate 75 mg 02/09/24 09:00 02/09/24 08:01 Clopidogrel 75 Mg Tab PO 75 mg DAILY DEMETRIO Administration Sodium Chloride 1,000 mls @ 130 mls/hr 02/08/24 23:00 02/09/24 06:33 Saline 0.9% IV 130 mls/hr .Q7H42M DEMETRIO Administration Lisinopril 2.5 mg 02/10/24 09:00 Lisinopril 2.5 Mg Tab PO DAILY DEMETRIO Metoprolol Tartrate 25 mg 02/09/24 21:00 Metoprolol Tartrate 25 Mg Tab PO BID DEMETRIO Naloxone HCl 0.2 mg 02/08/24 22:54 Naloxone 0.4 Mg/Ml 1 Ml Vial IV Q2M PRN Opioid Reversal Intake and Output 02/08/24 02/09/24 02/09/24 22:59 06:59 14:59 Other: Weight 90.718 kg 02/09/24 04:40 02/09/24 04:40
[2024-02-09] MEDS ORDERED: lisinopriL 10 MG TAB PO SCH (12:00)
[2024-02-09] MEDS: METOPROLOL TARTRATE 25 MG TAB PO STA (12:39)
[2024-02-09 12:44] VITALS: PULSE 77; RESP 16
[2024-02-09 13:16] VITALS: BP 102/76
--- NOTE | 2024-02-09 13:27 | P.DS ---
Providers Date of admission: 02/08/24 22:55 Expected date of discharge: 02/09/24 Attending physician: Doron Avila MD Consults: 02/08/24 22:54 Consult Physician Urgent Consulting Provider: [facility] Consult Reason/Comments: acute tachycardia, SCAD Do you want consulting provider notified?: Yes Primary care physician: Anita Bacon [facility] Course: #Sinus tachycardia #Recent inferior wall STEMI, type II secondary to SCAD s/p catheterization #Hypertension #Hyperlipidemia #[facility] Hospital Course: 54-year-old man with PMH of CAD and hypertension with a recent hospitalization on Saturday for STEMI and was found to have SCAD. Presented today with tachycardia and palpitations. -WBCs 10.6, hemoglobin 16.4, hematocrit 49.6, platelet 186; sodium 138, potas sium 4.8, BUN 23, creatinine 1.59 -Troponin trend: 0.065 -> 0.051 -Chest x-ray done in the ER showed no acute cardiopulmonary process or disease -EKG done in the ER showed sinus rhythm heart rate of 95, no ST segment elevation or depression seen, no T wave changes; QTc 369 Was seen by cardiology. Recommending increasing metoprolol and decreasing lisinopril. Renal function improving. Patient being discharged home. Will hand picker 2-week event monitor tomorrow from cardiology office. Outpatient follow-up with PCP and cardiology. Patient seen and examined at bedside. Vital signs reviewed and stable. General: Nontoxic, no distress, appears at stated age Derm: Warm, dry Head: Atraumatic, normocephalic, symmetric Eyes: EOMI, no lid lag, anicteric sclera Mouth: No lip lesion, mucus membranes moist Cardiovascular: S1S2 reg, no murmur Lungs: CTA bilateral, no rhonchi, no rales, no accessory muscle use Abdominal: Soft, nontender to palpation, no guarding, no appreciable organomegaly Ext: No gross muscle atrophy, no edema, no contractures Neuro: CN II-XI grossly intact, no focal neuro deficits Psych: Alert, oriented, appropriate affect A total of 35 minutes of time were spent preparing this complex discharge summary. Patient was discharged on 02/05/2024 at 1158. Patient Condition at Discharge: Stable Plan - Discharge Summary New Discharge Prescriptions: New Metoprolol Tartrate [Lopressor] 25 mg PO BID #90 tab lisinopriL [Zestril] 2.5 mg PO DAILY #90 tab Continue Aspirin 81 mg PO DAILY #90 tab Clopidogrel [Plavix] 75 mg PO DAILY #90 tab Rosuvastatin [Crestor] 20 mg PO DAILY #90 tablet Acetaminophen Tab [Tylenol] 650 mg PO Q6H PRN PRN Reason: Fever And/ Or Pain Nitroglycerin Sl Tabs [Nitrostat] 0.4 mg SUBLINGUAL Q5M PRN #25 tab PRN Reason: Chest Pain Discontinued lisinopriL [Zestril] 10 mg PO DAILY@1200 Metoprolol Tartrate [Lopressor] 12.5 mg PO BID #180 tab Discharge Medication List Acetaminophen Tab [Tylenol] 650 mg PO Q6H PRN 02/03/24 [History] Aspirin 81 mg PO DAILY #90 tab 02/06/24 [Rx] Clopidogrel [Plavix] 75 mg PO DAILY #90 tab 02/06/24 [Rx] Nitroglycerin Sl Tabs [Nitrostat] 0.4 mg SUBLINGUAL Q5M PRN #25 tab 02/06/24 [Rx] Rosuvastatin [Crestor] 20 mg PO DAILY #90 tablet 02/06/24 [Rx] Metoprolol Tartrate [Lopressor] 25 mg PO BID #90 tab 02/09/24 [Rx] lisinopriL [Zestril] 2.5 mg PO DAILY #90 tab 02/09/24 [Rx] Follow up Appointment(s)/Referral(s): Nikhil Sue DO [STAFF PHYSICIAN] - 1 Week Anita Blandon III, MD [Primary Care Provider] - 1-2 days Patient Instructions/Handouts: Heart Attack (DC) Activity/Diet/Wound Care/Special Instructions: Please hand picker event monitor from cardiology office tomorrow. Please see PCP and cardiology. Discharge Disposition: HOME SELF-CARE
[2024-02-09] MEDS ORDERED: METOPROLOL TARTRATE 25 MG TAB PO SCH (21:00)
== END 2024-02-09 13:45 | disposition home or self-care (01) ==
LOC: EC 20:51 → 3SCARD 22:55
PROVIDERS: ADMIT Internal Medicine; ATTEND Internal Medicine
DX: R00.0 Tachycardia, unspecified (principal); N17.9 Acute kidney failure, unspecified; I25.42 Coronary artery dissection; I21.4 Non-ST elevation (NSTEMI) myocardial infarction; I25.10 Atherosclerotic heart disease of native coronary artery without angina pectoris; I95.9 Hypotension, unspecified; I10 Essential (primary) hypertension; I25.41 Coronary artery aneurysm; I71.21 Aneurysm of the ascending aorta, without rupture; E78.5 Hyperlipidemia, unspecified; Z79.82 Long term (current) use of aspirin; Z79.02 Long term (current) use of antithrombotics/antiplatelets; Z79.899 Other long term (current) drug therapy; Z87.891 Personal history of nicotine dependence
CPT/HCPCS: 96360; 96361; 99285; 36415; 93005; 80053; 80048; 83735; 84484 ×2; 85025 ×2; 85610; 85730; 71046; G0378 ×2